=== PATIENT | female | born 1970 | race African-American/Black ===

== ENCOUNTER 2017-05-04 22:44 | Emergency (ER) | payer BC ==
[~2017-05-04] VITALS: Ht 175.3 cm; Wt 86.4 kg
[2017-05-04 22:49] VITALS: TEMP 36.9; Ht 175.3 cm; Wt 86.4 kg
[2017-05-04] MEDS ORDERED: VITACAP26 PO (23:05)
[2017-05-04 23:58] LABS: BASO % 1.3 %; BASO ABS # 0.06 K/uL (0-0.2); COMPLETE YES; EOS % 1.1 %; HEMATOCRIT 39.7 % (37-47); IG% 0.2 %; LYMPH % 38.8 %; LYMPH ABS # 1.73 K/uL (1.2-3.4); MEAN CELL VOLUME 82.2 fL (80-100); MEAN CORPUSCULAR HEMOGLOBIN 28.2 pg (25-34); MEAN CORPUSCULAR HGB CONC 34.3 g/dl (32-36); MEAN PLATELET VOLUME 10.1 fL (7.4-10.4); MONO % 8.3 %; NEUT % 50.3 %; PLATELET COUNT 352 K/uL (130-400); RED BLOOD COUNT 4.83 M/uL (4.2-5.4); WHITE BLOOD COUNT 4.46 K/uL (4.8-10.8)
[2017-05-05 00:16] LABS: ALT/SGPT 20 U/L (12-78); BLOOD UREA NITROGEN 15 mg/dl (7-18); BUN/CREATININE RATIO 13.9 (10-20); CALCIUM 9.7 mg/dl (8.5-10.1); CARBON DIOXIDE 27 mmol/L (21-32); CHLORIDE 104 mmol/L (98-107); GLUCOSE 105 mg/dl (70-99); MAGNESIUM 1.8 mg/dl (1.8-2.4); POTASSIUM 3.6 mmol/L (3.5-5.1); SODIUM 139 mmol/L (136-145)
[2017-05-05 00:27] LABS: ALKALINE PHOSPHATASE 74 U/L (45-117); AST/SGOT 16 U/L (15-37)
[2017-05-05 01:08] LABS: LYME DISEASE AB IGG NEG (NEG); LYME DISEASE AB IGM NEG (NEG)
[2017-05-05 02:42] LABS: URINE APPEARANCE CLEAR (CLEAR); URINE BILIRUBIN NEG (NEG); URINE COLOR YELLOW; URINE NITRITE NEG (NEG); UROBILINOGEN NEG (NEG); ZZUR CULT IF INDIC CLEAN CATCH NO
[2017-05-05 02:45] LABS: MANUAL MICROSCOPIC REQUIRED? NO; REVIEW REQ? NO
--- NOTE | 2017-05-05 03:00 | EMERGENCY ROOM VISIT NOTE ---
History Report prepared by Fredi: Contreras Gan Under the Supervision of: Dr. Talisha Brennan D.O. First contact with patient: 22:59 Chief Complaint: CARDIAC ASSESSMENT Stated Complaint: SVT EPISODE TODAY,WEAK,HEAD PRESSURE,EARACHE,SINUS History of Present Illness The patient is a 46 year old female who presents to the Emergency Room with complaints of intermittent episodes of heart palpitations beginning a few weeks ago. The patient notes that she had an episode of palpitations and near syncope a few weeks ago, for which she was admitted to the hospital. She has had two or three episodes since. She states that she is thought to be having episodes of SVT, though this has not been recorded. The patient was discharged from the hospital on Clarithromycin. She notes that she returned home from a trip shortly before her symptoms initially began. The patient states that she developed a fever after discharge from the hospital. She also complains of a dry cough, sore throat, sinus congestion, and a headache. She states that her episode of palpitations today began about an hour after her congestion and headache began. The patient states that she feels lightheaded, and short of breath with her palpitations. Her symptoms often occur with "bearing down". She notes that her father has a history of heart arrhythmia. The patient denies any new medications. She denies any changes to her bowel movements, or urinary symptoms. During hospital admission, the patient had an US of the carotids, a CT of the head, and a CTA chest which were negative. Her laboratory studies revealed a Hemoglobin of 11 and a Hematocrit of 34, and a magnesium of 1.9. Urinalysis was positive for nitrite and pt was tx for a UTI. The patient also had an echocardiogram which revealed LVEF of 55-60%, normal valves, normal wall motion , and no obvious abnormalities. Source of History: patient Onset: A few weeks ago Quality: other (heart palpitations) Timing: intermittent Modifying Factors (Worsening): other ("bearing down") Associated Symptoms: + headache, + sorethroat, + cough (dry), + SOB, No urinary symptoms Note: Additional symptoms: sinus congestion, lightheadedness. Review of Systems See HPI for pertinent positives & negatives. A total of 10 systems reviewed and were otherwise negative. Past Medical & Surgical Medical Problems: (1) No Known Active Medical Problems (2) Ovarian cyst Family History No pertinent family history stated. Social History Smoking Status: Never Smoker Marital Status: Housing Status: lives with roommate Current/Historical Medications Scheduled Multivitamins/Minerals (Mvi With Minerals), 1 TAB PO DAILY Probiotic Product (Probiotic), 1 CAP PO DAILY Vitamins C & E (Vitamin C), 1 CAP PO DAILY [Progesterone Cream], 1 APPLN TOP PRN UD Allergies Coded Allergies: Meperidine (Verified Allergy, Unknown, unsure, 05/04/17) Physical Exam Vital Signs Date Time Temp Pulse Resp B/P (MAP) Pulse Ox O2 Delivery O2 Flow Rate FiO2 05/05/17 03:36 94 18 139/70 100 05/05/17 03:17 101 05/05/17 01:46 91 18 115/77 97 Room Air 05/04/17 23:34 102 05/04/17 22:49 36.9 120 18 128/76 98 Room Air Physical Exam GENERAL: alert, well appearing, well nourished, no distress, non-toxic EYE EXAM: normal conjunctiva, PERRL and EOM's grossly intact OROPHARYNX: no exudate, no erythema, lips, buccal mucosa, and tongue normal and mucous membranes are moist NECK: supple, no nuchal rigidity, no adenopathy, non-tender LUNGS: Clear to auscultation. Normal chest wall mechanics HEART: no murmurs, S1 normal and S2 normal ABDOMEN: abdomen soft, non-tender, normo-active bowel sounds, no masses, no rebound or guarding. BACK: Back is symmetrical on inspection and there is no deformity, no midline tenderness, no CVA tenderness. SKIN: no rashes and no bruising UPPER EXTREMITIES: upper extremities are grossly normal. LOWER EXTREMITIES: No pitting edema. NEURO EXAM: Normal sensorium, cranial nerves II-XII grossly intact, normal speech, no gross weakness of arms, no gross weakness of legs. Medical Decision & Procedures ER Provider Diagnostic Interpretation: One View Chest X-ray interpreted by me: no cardiomegaly. No effusion. No wide mediastinum. No focal infiltrate. Laboratory Results 05/04/17 23:45 Red Blood Count 4.83, Mean Corpuscular Volume 82.2, Mean Corpuscular Hemoglobin 28.2, Mean Corpuscular Hemoglobin Concent 34.3, Mean Platelet Volume 10.1, Neutrophils (%) (Auto) 50.3, Lymphocytes (%) (Auto) 38.8, Monocytes (%) (Auto) 8.3, Eosinophils (%) (Auto) 1.1, Basophils (%) (Auto) 1.3, Neutrophils # (Auto) 2.24, Lymphocytes # (Auto) 1.73, Monocytes # (Auto) 0.37, Eosinophils # (Auto) 0.05, Basophils # (Auto) 0.06 05/04/17 23:45 Test 05/04/17 23:45 05/05/17 02:15 White Blood Count 4.46 K/uL (4.8-10.8) Red Blood Count 4.83 M/uL (4.2-5.4) Hemoglobin 13.6 g/dL (12.0-16.0) Hematocrit 39.7 % (37-47) Mean Corpuscular Volume 82.2 fL (80-100) Mean Corpuscular Hemoglobin 28.2 pg (25-34) Mean Corpuscular Hemoglobin Concent 34.3 g/dl (32-36) Platelet Count 352 K/uL (130-400) Mean Platelet Volume 10.1 fL (7.4-10.4) Neutrophils (%) (Auto) 50.3 % Lymphocytes (%) (Auto) 38.8 % Monocytes (%) (Auto) 8.3 % Eosinophils (%) (Auto) 1.1 % Basophils (%) (Auto) 1.3 % Neutrophils # (Auto) 2.24 K/uL (1.4-6.5) Lymphocytes # (Auto) 1.73 K/uL (1.2-3.4) Monocytes # (Auto) 0.37 K/uL (0.11-0.59) Eosinophils # (Auto) 0.05 K/uL (0-0.5) Basophils # (Auto) 0.06 K/uL (0-0.2) RDW Standard Deviation 39.7 fL (36.4-46.3) RDW Coefficient of Variation 13.0 % (11.5-14.5) Immature Granulocyte % (Auto) 0.2 % Immature Granulocyte # (Auto) 0.01 K/uL (0.00-0.02) D-Dimer 290 ug/L FEU (0-500) Anion Gap 8.0 mmol/L (3-11) Est Creatinine Clear Calc Drug Dose 75.8 ml/min Estimated GFR () 70.2 Estimated GFR (Non- 60.6 BUN/Creatinine Ratio 13.9 (10-20) Calcium Level 9.7 mg/dl (8.5-10.1) Magnesium Level 1.8 mg/dl (1.8-2.4) Total Bilirubin 0.3 mg/dl (0.2-1) Aspartate Amino Transf (AST/SGOT) 16 U/L (15-37) Alanine Aminotransferase (ALT/SGPT) 20 U/L (12-78) Alkaline Phosphatase 74 U/L (45-117) Troponin I < 0.015 ng/ml (0-0.045) Total Protein 8.2 gm/dl (6.4-8.2) Albumin 4.1 gm/dl (3.4-5.0) Globulin 4.1 gm/dl (2.5-4.0) Albumin/Globulin Ratio 1.0 (0.9-2) Thyroid Stimulating Hormone (TSH) 1.830 uIu/ml (0.300-4.500) Lyme Disease IgG Antibody NEG (NEG) Lyme Disease IgM Antibody NEG (NEG) Urine Color YELLOW Urine Appearance CLEAR (CLEAR) Urine pH 5.0 (4.5-7.5) Urine Specific [place] 1.020 (1.000-1.030) Urine Protein NEG (NEG) Urine Glucose (UA) NEG (NEG) Urine Ketones TRACE (NEG) Urine Occult Blood NEG (NEG) Urine Nitrite NEG (NEG) Urine Bilirubin NEG (NEG) Urine Urobilinogen NEG (NEG) Urine Leukocyte Esterase NEG (NEG) Laboratory results per my review. ECG Indication: palpitations Rate (beats per minute): 111 Rhythm: sinus tachycardia Findings: no ectopy, other (Normal axis. Normal intervals. ) Comparison ECG Date: no prior available ED Course 2305: The patient was evaluated in room B3B. A complete history and physical exam was performed. 0122: I updated the patient. She will give a urine sample. 0255: I reassessed the patient. She has had no more episodes of palpitations since arriving here. 0320: Upon reevaluation, the patient is feeling better. I discussed the findings and the treatment plan with the patient. She verbalizes agreement and understanding. The patient was discharged home. Medical Decision Differential diagnosis: Etiologies such as premature contractions, electrolyte abnormality, cardiac dysrhythmia, thyroid dysfunction, pulmonary embolism, infection, gastrointestinal, as well as others were entertained. Patient with reassuring labs similar to most recent hospitalization and evaluation she had of which records able to be reviewed at bedside is patient brought them with her. Patient with no evidence of dysrhythmias or concerning changes will be monitored on telemetry for several hours. Patient with no recurrent symptoms while here, orthostatics negative. Discussed with patient follow-up with family doctor as well as cardiology as she would likely need an outpatient Holter monitor. Discussed symptoms to watch and return for, avoidance of caffeine, new medications, dietary changes, strenuous activity, dehydration. Patient verbalized understanding of all this was agreeable with the plan. Doubt occult infectious etiology, doubt related to acute anxiety although discussed stress and anxiety with the patient, no evidence of thyroid storm, ACS , PE, electrolyte abnormality, doubt vascular etiology. Impression Primary Impression: Palpitations Scribe Attestation The scribe's documentation has been prepared under my direction and personally reviewed by me in its entirety. I confirm that the note above accurately reflects all work, treatment, procedures, and medical decision making performed by me. Departure Information Dispostion Home / Self-Care Referrals No Doctor, Assigned (PCP) Patient Instructions My [facility] Additional Instructions Please follow-up with cardiology and discuss warning monitor with them. Please do not start any new medications or dietary changes until you're seen and evaluated. Please stay well-hydrated, avoid caffeine, avoid strenuous activity or heavy lifting until you're otherwise feeling better. Please also discussed follow-up with APPRENTICE regarding possible hormonal changes and perimenopausal symptoms. If you develop any worsening symptoms, pass out, develop chest pain, trouble breathing, or you have any other new concerns, please return the emergency room.
[2017-05-05 03:36] VITALS: BP 139/70; PULSE 94; O2SAT 100
--- NOTE | 2017-05-05 08:22 | DIAGNOSTIC IMAGING REPORT ---
CHEST ONE VIEW PORTABLE HISTORY: palpitations, cough COMPARISON: None. FINDINGS: The lungs are clear. Cardiac silhouette is normal in size. No pleural effusions. No pneumothorax. IMPRESSION: No acute process. Electronically signed by: Feliz Arellano M.D. 05/05/2017 8:21 AM Dictated Date/Time: 05/05/2017 8:20 AM
[2017-05-24] MEDS ORDERED: ASCA500 PO (09:44)
[2017-05-24] MEDS ORDERED: MAGNESIUM 100 MG PO (17:09)
[2017-05-24] MEDS ORDERED: PROGESTERONE CREAM TOP (23:05)
[2017-05-24] MEDS ORDERED: MISCCAP80 PO (23:05)
[2017-05-24] MEDS ORDERED: MULT-513 PO (23:05)
[2017-05-26] MEDS ORDERED: LORA-741 PO (16:42)
== END 2017-05-05 03:36 | disposition home or self-care (01) ==
LOC: C.EDB 22:48
DX: R00.2 Palpitations (principal)

== ENCOUNTER → 2017-05-18 | Outpatient (CLI) | payer BC ==
[~2017-05-18] MED LIST: ASCA500 PO; LORA-741 PO; MAGN200T3 PO; MAGNESIUM 100 MG PO; MISCCAP80 PO; MULT-513 PO; PROGESTERONE CREAM TOP; RANI150T3 PO; VITACAP26 PO
[2017-05-18 10:05] LABS: INSULIN FASTING 19.6 mU/L (3-25)
[2017-05-18 10:06] LABS: T3 TOTAL 0.86 ng/ml (0.60-1.81); THYROXINE (T4) 9.4 mcg/dl (4.5-10.9)
[2017-05-18 10:10] LABS: C-REACTIVE PROTEIN < 0.29 mg/dl (0-0.29); CHOLESTEROL 170 mg/dl (0-200); CHOLESTEROL/HDL RATIO 2.5; HDL CHOLESTEROL 68 mg/dl; LDL CHOLESTEROL CALCULATED 90 mg/dl; TOTAL IRON BINDING CAPACITY 329 mcg/dl (250-450); TRIGLYCERIDES 58 mg/dl (0-150); VERY LOW DENSITY LIPOPROT CALC 12 mg/dl
[2017-05-18 10:16] LABS: ESTIMATED AVERAGE GLUCOSE 105 mg/dl; HA1C FLAG Normal (Normal)
[2017-05-21 17:34] LABS: MICROSOMAL AB 1 IU/ML (<9); T3 REVERSE **TC 90963 24 ng/dL (8-25); TSI <89 % baseline (<140)
--- NOTE | 2017-06-10 11:09 | CODING QUERY MEDICAL NECESSITY ---
SUPPORTING DIAGNOSIS NEEDED Dr. Aguirre, A supporting diagnosis is required for the test/procedure performed on this patient in order for us to be reimbursed by the patient's insurance. Please provide a supporting diagnosis for the following test/procedure listed below next to the test name along with your signature. *If there is no additional diagnosis for this patient that would support the following test/procedure please document that below next to the test/procedure. Test(s)/Procedure(s) that require a supporting diagnosis: * 41545 GLYCATED HEMOGLOBIN DIAGNOSIS: DATE OF SERVICE: 05/18/17 Provider Signature: Date: Thank you Claude Benitez [employer] Information Management Once completed, please kindly fax back to [phone] For questions please call [phone]
== END | disposition home or self-care (01) ==
LOC: C.LAB 08:41
PROVIDERS: ATTEND Internal Medicine
DX: I47.1 Supraventricular tachycardia (principal); R53.83 Other fatigue

== ENCOUNTER 2017-05-22 08:58 | Emergency (ER) | payer BC ==
[~2017-05-22] VITALS: Ht 175.3 cm; Wt 79.9 kg
[~2017-05-22 08:58] MED LIST changes: -ASCA500 PO; -LORA-741 PO; -MAGN200T3 PO; -MAGNESIUM 100 MG PO; -MISCCAP80 PO; -MULT-513 PO; -PROGESTERONE CREAM TOP; -RANI150T3 PO
[2017-05-22 09:14] VITALS: TEMP 36.8; Ht 175.3 cm; Wt 79.9 kg
[2017-05-22] MEDS ORDERED: SODIUM CHLORIDE 0.9% 1000ML 2,000 ML IV STA (09:43)
[2017-05-22 10:09] LABS: BLOOD UREA NITROGEN 6 mg/dl (7-18); BUN/CREATININE RATIO 5.7 (10-20); GLUCOSE 110 mg/dl (70-99); SODIUM 138 mmol/L (136-145)
[2017-05-22 10:10] LABS: CALCIUM 9.6 mg/dl (8.5-10.1); CARBON DIOXIDE 27 mmol/L (21-32); CHLORIDE 106 mmol/L (98-107); MAGNESIUM 2.1 mg/dl (1.8-2.4); POTASSIUM 3.5 mmol/L (3.5-5.1)
[2017-05-22 10:16] LABS: BASO % 1.1 %; BASO ABS # 0.06 K/uL (0-0.2); COMPLETE YES; EOS % 0.5 %; HEMATOCRIT 39.2 % (37-47); LYMPH ABS # 1.26 K/uL (1.2-3.4); MEAN CELL VOLUME 82.9 fL (80-100); MEAN CORPUSCULAR HEMOGLOBIN 27.9 pg (25-34); MEAN CORPUSCULAR HGB CONC 33.7 g/dl (32-36); MEAN PLATELET VOLUME 10.2 fL (7.4-10.4); MONO % 5.6 %; NEUT % 69.8 %; PLATELET COUNT 290 K/uL (130-400); RED BLOOD COUNT 4.73 M/uL (4.2-5.4); WHITE BLOOD COUNT 5.49 K/uL (4.8-10.8)
--- NOTE | 2017-05-22 10:20 | DIAGNOSTIC IMAGING REPORT ---
CHEST ONE VIEW PORTABLE CLINICAL HISTORY: 47 years-old Female presenting with Chest Pain. TECHNIQUE: Portable upright AP view of the chest was obtained. COMPARISON: 05/04/2017. FINDINGS: Cardiomediastinal silhouette normal. Lungs and pleural spaces clear. Osseous structures normal. Upper abdomen normal. IMPRESSION: 1. No acute cardiopulmonary disease. Electronically signed by: Usama Devi M.D. 05/22/2017 10:18 AM Dictated Date/Time: 05/22/2017 10:18 AM
[2017-05-22 13:05] VITALS: BP 130/83; PULSE 93; O2SAT 98
--- NOTE | 2017-05-22 14:18 | EMERGENCY ROOM VISIT NOTE ---
History Report prepared by Fredi: Yolanda Cheema Under the Supervision of: Dr. Tres Mock D.O. First contact with patient: 09:32 Chief Complaint: DIZZY Stated Complaint: ALMOST PASSED OUT, HEART RACING, POSSIBLE SVT EPIS Nursing Triage Summary: triage note: pt reports diarrhea x several days pt reports feeling weak and dizzy - pt reports hx of svt "i don't feel like i am in svt but i feel like my heart is racing maybe because i am dehydrated." pt reports nausea. History of Present Illness The patient is a 47 year old female who presents to the Emergency Room with complaints of constant lightheadedness for the past 3 hours. The patient woke up this morning feeling lightheaded and felt like she was going to pass out. She notes that she also woke up in the middle of the night last night and was feeling lightheaded and her heart was racing. She was able to fall back to sleep. Her symptoms are not worsened with changing positions. She was recently diagnosed with SVT by her powdered metal supervisor. She was diagnosed about 6 weeks ago. The patient states that the SVT has never been caught on a monitor or on an ECG. She has been taking magnesium but no other medications for her SVT. She thought that she might have gone into SVT this morning. The patient states that she felt like her heart was racing. She splashed cold water on her face and that helped to alleviate her symptoms. Pt denies headache, fevers, chest pain, shortness of breath, nausea, vomiting, diarrhea, pain with urination, and melena. She denies any further cardiac history or history of hypertension, diabetes, hyperlipidemia, CAD, smoking or sudden in family at age. She denies calf pain or swelling, recent travel, recent surgery, hemoptysis, and any previous blood clots. She has not had much of an appetite recently. The patient had a complete work-up on April 08 at [facility] in [place]. At that time she had an ultrasound of the carotids, a CT of the head, and a CTA of the chest, which were negative. Her hemoglobin was 11 and her magnesium was 1.9. She had an echo with an EF of 65%, no abnormalities. 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 She denies calf pain or swelling, recent travel, recent surgery, and any previous blood clots. Review of Systems See HPI for pertinent positives & negatives. A total of 10 systems reviewed and were otherwise negative. Past Medical & Surgical Medical Problems: (1) No Known Active Medical Problems (2) Ovarian cyst Family History No pertinent history stated. Social History Smoking Status: Never Smoker Marital Status: Housing Status: lives with roommate Current/Historical Medications Scheduled Ascorbic Acid (Vitamin C), 500 MG PO DAILY Multivitamins/Minerals (Mvi With Minerals), 1 TAB PO DAILY Probiotic Product (Probiotic), 1 CAP PO DAILY [Progesterone Cream], 1 APPLN TOP PRN UD Allergies Coded Allergies: Meperidine (Verified Allergy, Unknown, unsure, 05/22/17) Physical Exam Vital Signs Date Time Temp Pulse Resp B/P (MAP) Pulse Ox O2 Delivery O2 Flow Rate FiO2 05/22/17 13:05 93 16 130/83 98 05/22/17 13:02 93 05/22/17 12:23 92 16 130/83 05/22/17 10:47 110 16 134/87 05/22/17 09:40 101 16 134/84 104 153/96 120 117/90 05/22/17 09:37 112 05/22/17 09:14 36.8 115 18 124/81 98 Room Air Physical Exam GENERAL: alert, well appearing, sitting up in bed, well nourished, no distress, non-toxic EYE EXAM: normal conjunctiva, PERRL and EOM's grossly intact OROPHARYNX: no exudate, no erythema, lips, buccal mucosa, and tongue normal and mucous membranes are moist NECK: supple, no nuchal rigidity, no adenopathy, non-tender LUNGS: Clear to auscultation. Normal chest wall mechanics HEART: Tachycardic, no murmurs, S1 normal and S2 normal ABDOMEN: abdomen soft, non-tender, normo-active bowel sounds, no masses, no rebound or guarding. BACK: Back is symmetrical on inspection and there is no deformity, no midline tenderness, no CVA tenderness. SKIN: no rashes and no bruising UPPER EXTREMITIES: upper extremities are grossly normal. LOWER EXTREMITIES: No pitting edema. Calves are equal bilaterally. NEURO EXAM: Normal sensorium, cranial nerves II-XII intact, normal speech, no weakness of arms, no weakness of legs. No drift. Finger to nose intact. Gross sensation intact. Rapid alternating movements of upper extremities intact. Medical Decision & Procedures ER Provider Diagnostic Interpretation: Radiology results as stated below per my review and the radiologist's interpretation: CHEST ONE VIEW PORTABLE CLINICAL HISTORY: 47 years-old Female presenting with Chest Pain. TECHNIQUE: Portable upright AP view of the chest was obtained. COMPARISON: 05/04/2017. FINDINGS: Cardiomediastinal silhouette normal. Lungs and pleural spaces clear. Osseous structures normal. Upper abdomen normal. IMPRESSION: 1. No acute cardiopulmonary disease. Electronically signed by: Usama Devi M.D. 05/22/2017 10:18 AM Dictated Date/Time: 05/22/2017 10:18 AM Laboratory Results 05/22/17 09:43 Red Blood Count 4.73, Mean Corpuscular Volume 82.9, Mean Corpuscular Hemoglobin 27.9, Mean Corpuscular Hemoglobin Concent 33.7, Mean Platelet Volume 10.2, Neutrophils (%) (Auto) 69.8, Lymphocytes (%) (Auto) 23.0, Monocytes (%) (Auto) 5.6, Eosinophils (%) (Auto) 0.5, Basophils (%) (Auto) 1.1, Neutrophils # (Auto) 3.83, Lymphocytes # (Auto) 1.26, Monocytes # (Auto) 0.31, Eosinophils # (Auto) 0.03, Basophils # (Auto) 0.06 05/22/17 09:30 Test 05/22/17 09:30 05/22/17 09:43 05/22/17 12:15 D-Dimer 350 ug/L FEU (0-500) Anion Gap 5.0 mmol/L (3-11) Est Creatinine Clear Calc Drug Dose 79.6 ml/min Estimated GFR () 78.2 Estimated GFR (Non- 67.5 BUN/Creatinine Ratio 5.7 (10-20) Calcium Level 9.6 mg/dl (8.5-10.1) Magnesium Level 2.1 mg/dl (1.8-2.4) Thyroid Stimulating Hormone (TSH) 1.290 uIu/ml (0.300-4.500) White Blood Count 5.49 K/uL (4.8-10.8) Red Blood Count 4.73 M/uL (4.2-5.4) Hemoglobin 13.2 g/dL (12.0-16.0) Hematocrit 39.2 % (37-47) Mean Corpuscular Volume 82.9 fL (80-100) Mean Corpuscular Hemoglobin 27.9 pg (25-34) Mean Corpuscular Hemoglobin Concent 33.7 g/dl (32-36) Platelet Count 290 K/uL (130-400) Mean Platelet Volume 10.2 fL (7.4-10.4) Neutrophils (%) (Auto) 69.8 % Lymphocytes (%) (Auto) 23.0 % Monocytes (%) (Auto) 5.6 % Eosinophils (%) (Auto) 0.5 % Basophils (%) (Auto) 1.1 % Neutrophils # (Auto) 3.83 K/uL (1.4-6.5) Lymphocytes # (Auto) 1.26 K/uL (1.2-3.4) Monocytes # (Auto) 0.31 K/uL (0.11-0.59) Eosinophils # (Auto) 0.03 K/uL (0-0.5) Basophils # (Auto) 0.06 K/uL (0-0.2) RDW Standard Deviation 40.7 fL (36.4-46.3) RDW Coefficient of Variation 13.4 % (11.5-14.5) Immature Granulocyte % (Auto) 0.0 % Immature Granulocyte # (Auto) 0.00 K/uL (0.00-0.02) Troponin I < 0.015 ng/ml (0-0.045) Laboratory results per my review. Medications Administered Medications (Trade) Dose Ordered Sig/Ladonna Route Start Time Stop Time Status Last Admin Dose Admin Sodium Chloride 2,000 ml @ 999 mls/hr Q2H1M STAT IV 05/22/17 09:43 05/22/17 11:43 DC 05/22/17 10:00 999 MLS/HR ECG Indication: palpitations Rate (beats per minute): 105 Rhythm: sinus tachycardia Findings: other (normal axis, flipped t-waves in the septal and inferior, t- wave flattening in the lateral) Comparison ECG Date: 05/04/17 Change: ECG has improved. ED Course ED COURSE: Vital signs were reviewed and showed tachycardic. The patients medical record was reviewed The above diagnostic studies were performed and reviewed. ED treatments and interventions as stated above. 0932: The patient was evaluated in room A3. A complete history and physical examination was performed. 0943: NSS 2000 ml @ 999 mls/hr IV 1051: I reassessed the patient and she is doing well. I updated her and her . 1306: Upon reevaluation, the patient is feeling better and resting comfortably. I discussed my findings with the patient and her . They understand and agree with the treatment plan. Based on the patients age, coexisting illnesses, exam and lab findings the decision to treat as an outpatient was made. The patient remained stable while under my care. The patient appeared well at the time of discharge. She will follow-up with her PCP this afternoon. Medical Decision Differential diagnoses includes but is not limited to acute coronary syndrome, myocardial infarction, pericarditis, pulmonary embolus, aortic dissection, pneumonia, pneumothorax, musculoskeletal, shingles, esophageal. Patient is a 47 her old female who presents the ER for lightheadedness which has been coming and going associated with heart palpitations. 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 She has been following with her powdered metal supervisor and the presumptive diagnosis was SVT which was never caught on monitor/EKG. Patient presents today which is similar to her presentation in early April. She complains of lightheadedness and feeling that she is going to pass out along with her heart racing. These episodes of her heart racing to sound like episodes of SVT but cannot be certain at this time. He has had extensive workup before. At that time she had an ultrasound of the carotids, a CT of the head, and a CTA of the chest, which were negative. Her hemoglobin was 11 and her magnesium was 1.9. She had an echo with an EF of 65%, no abnormalities. Today labs including CBC was unremarkable without signs of infection or anemia. BMP shows normal electrolytes along with magnesium. TSH was normal. I did not repeat a CT of her head. EKG was improved from her last presentation. Troponins were negative 2. D-dimer was negative. She did have a previous CTA back in March. Her resting heart rate does appear to be elevated as it runs in the ER 80s to 108. Patient is feeling better following 2 L normal saline. I'm uncertain of the true cause of her palpitations at this time but to feel as though they're causing the feeling of lightheadedness. Her neurologic exam is completely intact. I do favor she'll benefit from a Holter monitor and PCP along with cardiology. We set up appointment with her for 3:50 today with a PCP. She will be evaluated at that time and hopefully worked up and possibly transitioned into cardiology and a Holter monitor as they deem fit. Discussed with Pt concerning signs and symptoms to watch out for. Pt was instructed to follow up with their PCP and discussed with the patient their option to return to the ED at anytime for persistent or worsening symptoms. The appropriate anticipatory guidance and out-patient management, including indications for return to the emergency department, were explained at length to the patient and understood. Medication Reconcilliation Current Medication List: was personally reviewed by me Blood Pressure Screening Patient's blood pressure: Normal blood pressure Impression Primary Impression: Heart palpitations Additional Impression: Lightheaded Scribe Attestation The scribe's documentation has been prepared under my direction and personally reviewed by me in its entirety. I confirm that the note above accurately reflects all work, treatment, procedures, and medical decision making performed by me. Departure Information Dispostion Home / Self-Care Referrals No Doctor, Assigned (PCP) Forms HOME CARE DOCUMENTATION FORM, IMPORTANT VISIT INFORMATION Patient Instructions ED Dizziness [facility], ED Palpitations, My [facility] Additional Instructions Please follow up with your primary care doctor physician which is set up for 3: 50 PM today. Any worsening of your symptoms, please return to the ED immediately. This includes any fevers greater than 100.4, passing out, chest pain, shortness breath, persistent nausea, vomiting, unable to eat or drink, or any other concerning signs or symptoms from your standpoint. Problem Qualifiers
[2017-05-24] MEDS ORDERED: ASCA500 PO (09:44)
[2017-05-24] MEDS ORDERED: MAGNESIUM 100 MG PO (17:09)
[2017-05-24] MEDS ORDERED: MULT-513 PO (23:05)
[2017-05-24] MEDS ORDERED: PROGESTERONE CREAM TOP (23:05)
[2017-05-24] MEDS ORDERED: MISCCAP80 PO (23:05)
--- NOTE | 2017-05-26 11:21 | Cardiology Consultation ---
Cardiology Consultation Date of Consultation: May 26, 2017. Requesting Physician: Richa Reason for Consultation: palpitations Pt evaluation today including: conversation w/ patient, physical exam, chart review, lab review, review of studies, conversation w/ attending History of Present Illness The patient is a 47-year-old woman without a known cardiac history who has been experiencing episodes of presyncope. He is apparently started several weeks ago while she was residing in [place]. Initial episode involved a hot painful sensation in the right thigh and which then generalized to include a sense of weakness dizziness and presyncope. This episode prompted an evaluation in a brief hospitalization. She claims to have had several studies performed including CT imaging of her head and an echocardiogram. Patient was discharged return to [place] where she has been suffering additional episodes. Many of these episodes are precipitated by some abdominal or gastrointestinal symptoms such as a cramping or pain in the abdomen. He can also happen after eating. At the onset of the symptoms the patient often times starts to feel warm weak and occasionally develops a sense of dizziness, shortness of breath and chest and neck tightness. Often times she can Pre through the episodes and they will resolve within a few minutes. Other time she needs to sit down and they become more prolonged. Afterwards she is quite weak and drained. While she occasionally has a sense of palpitation this is not a feature of all of her episodes. Interestingly, she has noted similar symptoms of dizziness and lightheadedness when she becomes quite constipated. The patient is an otherwise active individual who was accustomed to routine exercise. She denies problems with exercise although according to the patient feels that she recovers poorly from exertion. He has not describe additional symptoms recently such as fevers or chills. She has had some mild anorexia recently and some abdominal complaints. This appears to have resulted in a 10-15 lb weight loss. 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 Review of Systems Constitutional: + see HPI Respiratory: + see HPI Cardiac: + see HPI Abdomen: + see HPI Female : + see HPI Neurologic: + see HPI Heme: + see HPI Endo: + see HPI Skin: + see HPI All Other Systems: Reviewed and Negative Allergies Coded Allergies: Meperidine (Verified Allergy, Unknown, unsure, 8/23/17) Physical Exam She is alert and oriented x3. Mood affect appear normal. She answered all questions appropriately. HEENT: Sclerae are anicteric. Pupils are equal and reactive to light and accommodation. Extraocular movements were intact. Neuro: Cranial nerves intact Neck: Examination of the submandibular region did not reveal any significant lymphadenopathy. Carotids are palpable bilaterally and free of bruits on auscultation. There was no evidence of jugular venous distention. The thyroid was not enlarged. Lungs: Lungs are clear to auscultation bilaterally. There are no rales wheezes or rhonchi. She has normal respiratory effort without use of accessory muscles. There is normal pulmonary excursion. Cardiac: The rhythm was regular. S1 and S2 were normal. There are no murmurs on examination. The PMI was not markedly displaced on palpation. Abdomen: The abdomen was soft and nontender. Extremities: Patient has bilateral radial pulses that are equal in intensity. There is no evidence cyanosis or clubbing. There was no evidence of significant peripheral edema bilaterally. Skin: There are no rashes noted on examination today. Data Imaging: Chest x-ray was normal EKG: Normal EKG without evidence of pre-excitation, prolonged QT, Brugada pattern or left ventricular hypertrophy Telemetry reviewed: No significant arrhythmia Assessment & Plan 1. Dizziness: Patient has been evaluated in several medical settings over the past few weeks without documentation of any arrhythmia. I do not feel that palpitations or tachycardia are prominent feature of her presentation although she does describe these once in a while. Seems in most of her symptoms start with some gastrointestinal disturbance and then generalized include weakness and presyncope. I suspect this is involves an element of high vagal output. I think her episodes of most likely vagally mediated. While her records from [place] are not available, I suspect her evaluation there was normal. Her examination is normal today. Her EKG is normal. I think this is of low risk situation and additional monitoring is probably reasonable in order to provide any correlation between any arrhythmia and the symptoms described. She was scheduled for Holter monitoring, but event monitoring is probably more appropriate. She has already taken the precaution of increasing hydration. She is aware of the symptoms and does engage in abortive maneuvers when they occur. No actual syncope. I will attempt to obtain her records to confirm the normal nature of her evaluation, and at this point I feel she could be safely discharged with outpatient event monitoring.
[2017-05-26] MEDS ORDERED: LORA-741 PO (16:42)
== END 2017-05-22 13:05 | disposition home or self-care (01) ==
LOC: C.EDB 09:00 → C.EDA 13:05
DX: R00.2 Palpitations (principal); R42 Dizziness and giddiness; I47.1 Supraventricular tachycardia; Z79.899 Other long term (current) drug therapy

== ENCOUNTER 2017-05-24 16:48 | Emergency (ER) | payer BC ==
[~2017-05-24] VITALS: Ht 175.3 cm; Wt 81.7 kg
[~2017-05-24 16:48] MED LIST changes: +ASCA500 PO; -VITACAP26 PO
[2017-05-24 16:53] VITALS: TEMP 36.9; Ht 175.3 cm; Wt 81.7 kg
[2017-05-24] MEDS ORDERED: MAGNESIUM 100 MG PO ×2 (17:09)
[2017-05-24] MEDS ORDERED: SODIUM CHLORIDE 0.9% 1000ML 1,000 ML IV STA (17:40)
[2017-05-24 18:03] LABS: URINE APPEARANCE CLEAR (CLEAR); URINE BILIRUBIN NEG (NEG); URINE COLOR YELLOW; URINE EPITHELIAL CELL AUTO 20-30 /lpf (0-5); URINE NITRITE NEG (NEG); URINE PH 5.5 (4.5-7.5); URINE SPECIFIC GRAVITY 1.013 (1.000-1.030); UROBILINOGEN NEG (NEG); ZZUR CULT IF INDIC CLEAN CATCH NO
[2017-05-24 18:11] LABS: BASO % 1.6 %; BASO ABS # 0.07 K/uL (0-0.2); COMPLETE YES; EOS % 0.7 %; HEMATOCRIT 38.6 % (37-47); IG% 0.2 %; LYMPH % 38.6 %; MEAN CORPUSCULAR HEMOGLOBIN 27.1 pg (25-34); MEAN CORPUSCULAR HGB CONC 32.6 g/dl (32-36); MEAN PLATELET VOLUME 10.3 fL (7.4-10.4); MONO % 8.2 %; NEUT % 50.7 %; PLATELET COUNT 320 K/uL (130-400); RED BLOOD COUNT 4.65 M/uL (4.2-5.4)
[2017-05-24 18:14] LABS: MANUAL MICROSCOPIC REQUIRED? NO; REVIEW REQ? NO
[2017-05-24 18:16] LABS: CHLORIDE 105 mmol/L (98-107); POTASSIUM 3.7 mmol/L (3.5-5.1); SODIUM 140 mmol/L (136-145)
--- NOTE | 2017-05-24 18:16 | EMERGENCY ROOM VISIT NOTE ---
History First contact with patient: 17:23 Chief Complaint: CARDIAC ASSESSMENT Stated Complaint: DEHYDRATION,HEART PALPATATIONS,ALMOST PASSED OUT History of Present Illness The patient is a 47 year old female who presents to the Emergency Room via private vehicle referred from doctor's office with complaints of "dehydration, heart palpitations, almost passed out". The patient states that for the past week she has had diarrhea, and also one episode of heart palpitations and near syncopal episode today around 12:30 PM. This was followed by dry mouth, which she knows she's had for the past 2 days, as well as loss of appetite and nausea. She describes the palpitations episode as a gurgling starting in the upper abdomen that radiates up in through to the mouth region. At that time she notes as though she feels as she is going to pass out and has associated palpitations. She then had the sudden urge to urinate. This past Saturday she was seen here in the emergency Department for the same symptoms, and noted to be dehydrated. She states that when she was seen here in the emergency department 2 days ago, she was doing okay up until yesterday when the symptoms returned. It is important at the 7 weeks ago she had similar symptoms, when she was seen in the emergency department as well and also found to have low magnesium, potassium as well as a urinary tract infection. She was discharged home at that time on antibiotics and felt much better, however her symptoms then began to return. She is here concerned because today the symptoms have returned, and although she was to follow up with cardiology today for Holter monitor placement the symptoms were concerning therefore prompted her visit here. She was referred here by her family doctor. She denies chance of . She denies any abdominal pain at this time. No chest pain, pressure or shortness of breath at this time. The patient had a complete work-up on April 08 at [facility] in [place]. Testing there included: ultrasound of the carotids, a CT of the head, and a CTA of the chest, which were negative. She had an echo with an EF of 65%, no abnormalities. Review of Systems A complete 10-point Review of Systems was discussed with the patient, with pertinent positives and negatives listed in the History of Present Illness. All remaining Review of Systems questions can be considered negative unless otherwise specified. Past Medical/Surgical History Medical Problems: (1) No Known Active Medical Problems (2) Ovarian cyst Social History Smoking Status: Never Smoker Marital Status: Housing Status: lives with roommate Current/Historical Medications Scheduled Ascorbic Acid (Vitamin C), 500 MG PO DAILY Multivitamins/Minerals (Mvi With Minerals), 1 TAB PO DAILY Probiotic Product (Probiotic), 1 CAP PO DAILY [Magnesium 100MG], 200 MG PO DAILY [Progesterone Cream], 1 APPLN TOP PRN UD Physical Exam Vital Signs Date Time Temp Pulse Resp B/P (MAP) Pulse Ox O2 Delivery O2 Flow Rate FiO2 05/24/17 21:10 96 16 124/72 98 05/24/17 19:51 92 18 130/82 100 Room Air 05/24/17 19:45 118 05/24/17 18:27 82 18 123/87 100 Room Air 05/24/17 17:52 Room Air 05/24/17 17:21 84 05/24/17 17:13 Room Air 05/24/17 16:53 36.9 86 18 137/71 97 Room Air Physical Exam VITAL SIGNS - Vital signs and nursing notes were reviewed. Stable. GENERAL -47-year-old female appearing her stated age who is in no acute distress. Communicates well with provider and answers questions appropriately. SKIN - Without rashes. No petechial rashes. HEAD - NC/AT. EYES - PERRL with EOMI bilaterally. Sclera anicteric. Palpebral conjunctiva pink and moist with no injection noted. EARS - No deformities of external structures noted on gross examination bilaterally. NOSE - Midline and without cyanosis. No epistaxis or purulent drainage noted. MOUTH/OROPHARYNX - Without perioral cyanosis. Buccal mucosa pink and moist and without leukoplakia. Tongue midline with equal elevation of palate bilaterally. No tonsillar hypertrophy, erythema, or exudates noted. Fair dentition noted. Airways patent NECK - Neck with FROM. Supple to palpation. No lymphadenopathy noted. No nuchal rigidity. LUNGS - Chest wall symmetric without accessory muscle use, intercostals retractions, or central cyanosis. Normal vesicular breath sounds CTA B/L. No wheezes, rales, or rhonchi appreciated. CARDIAC - RRR with S1/S2. No murmur, rubs, or gallops appreciated. EXTREMITIES - No clubbing or peripheral cyanosis. No pretibial edema present. + 5/5 strength noted in UE/LE bilaterally. NEUROLOGIC - Cranial nerves II through XII grossly intact. Sensory intact to light touch throughout. PSYCH - A&Ox3 and cooperates fully with examiner. Pt is very pleasant and interacts well with examiner. Medical Decision & Procedures Laboratory Results 05/24/17 17:19 Red Blood Count 4.65, Mean Corpuscular Volume 83.0, Mean Corpuscular Hemoglobin 27.1, Mean Corpuscular Hemoglobin Concent 32.6, Mean Platelet Volume 10.3, Neutrophils (%) (Auto) 50.7, Lymphocytes (%) (Auto) 38.6, Monocytes (%) (Auto) 8.2, Eosinophils (%) (Auto) 0.7, Basophils (%) (Auto) 1.6, Neutrophils # (Auto) 2.23, Lymphocytes # (Auto) 1.70, Monocytes # (Auto) 0.36, Eosinophils # (Auto) 0.03, Basophils # (Auto) 0.07 05/24/17 17:19 Test 05/24/17 17:19 05/24/17 19:33 White Blood Count 4.40 K/uL (4.8-10.8) Red Blood Count 4.65 M/uL (4.2-5.4) Hemoglobin 12.6 g/dL (12.0-16.0) Hematocrit 38.6 % (37-47) Mean Corpuscular Volume 83.0 fL (80-100) Mean Corpuscular Hemoglobin 27.1 pg (25-34) Mean Corpuscular Hemoglobin Concent 32.6 g/dl (32-36) Platelet Count 320 K/uL (130-400) Mean Platelet Volume 10.3 fL (7.4-10.4) Neutrophils (%) (Auto) 50.7 % Lymphocytes (%) (Auto) 38.6 % Monocytes (%) (Auto) 8.2 % Eosinophils (%) (Auto) 0.7 % Basophils (%) (Auto) 1.6 % Neutrophils # (Auto) 2.23 K/uL (1.4-6.5) Lymphocytes # (Auto) 1.70 K/uL (1.2-3.4) Monocytes # (Auto) 0.36 K/uL (0.11-0.59) Eosinophils # (Auto) 0.03 K/uL (0-0.5) Basophils # (Auto) 0.07 K/uL (0-0.2) RDW Standard Deviation 40.3 fL (36.4-46.3) RDW Coefficient of Variation 13.3 % (11.5-14.5) Immature Granulocyte % (Auto) 0.2 % Immature Granulocyte # (Auto) 0.01 K/uL (0.00-0.02) Prothrombin Time 10.8 SECONDS (9.0-12.0) Prothromb Time International Ratio 1.0 (0.9-1.1) Activated Partial Thromboplast Time 25.4 SECONDS (21.0-31.0) Partial Thromboplastin Ratio 1.0 Urine Color YELLOW Urine Appearance CLEAR (CLEAR) Urine pH 5.5 (4.5-7.5) Urine Specific [place] 1.013 (1.000-1.030) Urine Protein NEG (NEG) Urine Glucose (UA) NEG (NEG) Urine Ketones NEG (NEG) Urine Occult Blood 2+ (NEG) Urine Nitrite NEG (NEG) Urine Bilirubin NEG (NEG) Urine Urobilinogen NEG (NEG) Urine Leukocyte Esterase NEG (NEG) Urine WBC (Auto) 1-5 /hpf (0-5) Urine RBC (Auto) 0-4 /hpf (0-4) Urine Hyaline Casts (Auto) 0 /lpf (0-5) Urine Epithelial Cells (Auto) 20-30 /lpf (0-5) Urine Bacteria (Auto) NEG (NEG) Urine Test NEG (NEG) Anion Gap 8.0 mmol/L (3-11) Est Creatinine Clear Calc Drug Dose 80.4 ml/min Estimated GFR () 78.2 Estimated GFR (Non- 67.5 BUN/Creatinine Ratio 6.7 (10-20) Calcium Level 9.6 mg/dl (8.5-10.1) Magnesium Level 2.0 mg/dl (1.8-2.4) Total Bilirubin 0.4 mg/dl (0.2-1) Aspartate Amino Transf (AST/SGOT) 16 U/L (15-37) Alanine Aminotransferase (ALT/SGPT) 23 U/L (12-78) Alkaline Phosphatase 67 U/L (45-117) Troponin I < 0.015 ng/ml (0-0.045) Total Protein 8.0 gm/dl (6.4-8.2) Albumin 4.1 gm/dl (3.4-5.0) Globulin 3.9 gm/dl (2.5-4.0) Albumin/Globulin Ratio 1.1 (0.9-2) Lipase 188 U/L (73-393) Thyroid Stimulating Hormone (TSH) 1.140 uIu/ml (0.300-4.500) Lyme Disease IgG Antibody NEG (NEG) Lyme Disease IgM Antibody NEG (NEG) Bedside Troponin I < 0.030 ng/ml (0-0.045) Medications Administered Medications (Trade) Dose Ordered Sig/Ladonna Route Start Time Stop Time Status Last Admin Dose Admin Sodium Chloride 1,000 ml @ 999 mls/hr Q1H1M STAT IV 05/24/17 17:40 05/24/17 18:40 DC 05/24/17 18:22 999 MLS/HR Medical Decision Patient was seen and evaluated as above. Previous visit was extensively reviewed. The patient has been seen here recently in the past for similar symptoms. 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 At this time, I do believe that laboratory workup should begin, and she respect we declined a chest x-ray which at this time I do not believe be beneficial as she just had one a few days ago. On examination there are no emergent findings. She is placed on the monitor, and had 2 episodes of what may be a few PVCs, but still in no SVT. No Atrial fibrillation or V. tach. Troponins were negative 2. Her EKG here initially revealed normal sinus rhythm with sinus arrhythmia, rate of 91 bpm, without ectopy or ischemic change. This was compared to EKG of 05/22/2017 and actually appeared to be improved. The nonspecific T-wave abnormality in the anterior leads has disappeared or become less evident. Later in her stay I decided to repeat another EKG which revealed normal sinus rhythm, rate of 90 bpm, without ectopy or ischemic change. This was compared to one performed earlier in the day and no significant change was found. CBC reveals slight decrease in her white blood cell count 4.4, this was discussed with the patient. There is no anemia. Coags were unremarkable. CMP reveals a creatinine of 1.0, and negative troponins 2. Lipase is negative and TSH is also negative. Urine reveals 2+ blood, the patient is on her menses. Urine test is negative. Lyme testing is also negative. The patient was offered inpatient management, for further evaluation and management of her symptoms, but at this time I do believe she is stable for outpatient management to continue with a Holter monitor. Unfortunately the patient had attempted to become fitted with a Holter monitor today, but was not able to have an appointment. I did talk with her block and case maker trying to establish this for the patient but being the weekend does not appear possible. She felt stable for outpatient management, and notes that she will call her family doctor first thing on Saturday to discuss Holter monitor placement. She certainly is invited back here for any worsening of her symptoms. She was educated upon worrisome symptoms which to return, had questions answered prior to discharge, and was discharged home in good condition. I want to be clear that at this time there is been no emergent process reveal itself during her stay, but I do suspect she is probably experiencing episodes of SVT. The case was extensively discussed with the attending physician. In evaluation and treatment of this patient the following differential diagnoses were entertained: SVT, cardiac arrhythmia, MD, PE, among others. The patient at this time can be PERC rule negative, and had normal d-dimer a few days ago. Impression Primary Impression: Heart palpitations Additional Impression: Lightheaded Departure Information Dispostion Home / Self-Care Condition GOOD Referrals Josh. Guardado M.D. (PCP) Patient Instructions My [facility] Additional Instructions You were seen in the emergency Department for dehydration, or palpitations, and a near syncopal event. At this time as we discussed, I cannot appreciate any emergent or surgical causes to her symptoms at this time. I do believe that following up with her family doctor, for potential monitor is reasonable. Please call the first thing Saturday morning to schedule this. If you develop worsening of your symptoms presently certainly return. Please return to emergency department with any new/symptoms. Problem Qualifiers
[2017-05-24 18:17] LABS: PROTHROMBIN TIME (PATIENT) 10.8 SECONDS (9.0-12.0)
[2017-05-24 18:20] LABS: ALT/SGPT 23 U/L (12-78); AST/SGOT 16 U/L (15-37); BLOOD UREA NITROGEN 7 mg/dl (7-18); BUN/CREATININE RATIO 6.7 (10-20); CALCIUM 9.6 mg/dl (8.5-10.1); CARBON DIOXIDE 27 mmol/L (21-32); GLUCOSE 91 mg/dl (70-99)
[2017-05-24 18:31] LABS: ALB/GLOB RATIO 1.1 (0.9-2); ALKALINE PHOSPHATASE 67 U/L (45-117)
[2017-05-24 18:47] LABS: LYME DISEASE AB IGG NEG (NEG); LYME DISEASE AB IGM NEG (NEG)
[2017-05-24 21:10] VITALS: BP 124/72; PULSE 96; O2SAT 98
[2017-05-24] MEDS ORDERED: PROGESTERONE CREAM TOP ×2 (23:05)
[2017-05-24] MEDS ORDERED: MULT-513 PO ×2 (23:05)
[2017-05-24] MEDS ORDERED: MISCCAP80 PO ×2 (23:05)
== END 2017-05-24 21:11 | disposition home or self-care (01) ==
LOC: C.EDB 16:49 → C.EDC 21:11
DX: R00.2 Palpitations (principal); R42 Dizziness and giddiness; Z87.440 Personal history of urinary (tract) infections; Z79.899 Other long term (current) drug therapy

== ENCOUNTER 2017-05-25 23:09 | Observation (INO) | payer BC ==
[~2017-05-25] VITALS: Ht 175.3 cm; Wt 81.1 kg
[~2017-05-25 23:09] MED LIST changes: +MAGNESIUM 100 MG PO; +MISCCAP80 PO; +MULT-513 PO; +PROGESTERONE CREAM TOP
[2017-05-26 00:05] LABS: MEAN CELL VOLUME 83.5 fL (80-100); MEAN CORPUSCULAR HEMOGLOBIN 26.3 pg (25-34); MEAN CORPUSCULAR HGB CONC 31.5 g/dl (32-36); MEAN PLATELET VOLUME 10.4 fL (7.4-10.4); PLATELET COUNT 326 K/uL (130-400); RED BLOOD COUNT 4.91 M/uL (4.2-5.4); WHITE BLOOD COUNT 4.96 K/uL (4.8-10.8)
[2017-05-26 00:14] LABS: ALT/SGPT 23 U/L (12-78); AST/SGOT 13 U/L (15-37); BLOOD UREA NITROGEN 7 mg/dl (7-18); BUN/CREATININE RATIO 7.8 (10-20); CALCIUM 9.1 mg/dl (8.5-10.1); CARBON DIOXIDE 27 mmol/L (21-32); CHLORIDE 105 mmol/L (98-107); CREATININE 0.95 mg/dl (0.60-1.20); GLUCOSE 97 mg/dl (70-99); POTASSIUM 3.4 mmol/L (3.5-5.1); SODIUM 141 mmol/L (136-145)
[2017-05-26 00:19] LABS: ALB/GLOB RATIO 1.1 (0.9-2); ALKALINE PHOSPHATASE 61 U/L (45-117); CKMB/CK RATIO 0.4 (0-3.0)
[2017-05-26 00:58] LABS: BASO % 0.6 %; BASO ABS # 0.03 K/uL (0-0.2); COMPLETE YES; EOS % 1.6 %; IG% 0.2 %; LYMPH % 54.4 %; MONO % 8.5 %; NEUT % 34.7 %
[2017-05-26] MEDS ORDERED: ACETAMINOPHEN 325 MG TAB PO PRN (01:15)
[2017-05-26] MEDS ORDERED: ONDANSETRON INJ 2 MG/ML 2 ML VIAL IV PRN (01:15)
--- NOTE | 2017-05-26 01:16 | History and Physical ---
History & Physical Date & Time of Service: May 26, 2017 at 01:15 Chief Complaint: Tight Chest, Sob Primary Care Physician: No Doctor, Assigned History of Present Illness Source: patient, clinic records, hospital records Mrs Mccann is a 47 year old female who presents to the ER with palpitations, chest and neck pain. Her symptoms started 7 weeks previously. She has intermittent episodes of feeling flushed, then her heart racing, shortness of breath, then presyncope. She denies any syncope, orthopnea, PND or claudication. Her initial episode was a sensation of warm throbbing in her thigh, shortness of breath, feeling flushed and dizzy. She was able to walk around to the [facility] to get some help. She was hospitalized in [place] with an extensive workup. I do not have those notes but as per previous ER and clinic notes show she had a CT for PE which was normal. Echo was unremarkable. 1 weeks after this she had her second episode. She is now having palpation episodes every 1-2 days. Her symptoms have also become more severe and she notices tightness around her neck, chest pain, then palpitations. She has managed to stop some episodes she thinks by splashing her face with water or bearing down. These episodes are severely effecting her life and she has lost her appetite for the last 2-3 weeks and feels drained for most of the day when she gets them and spends a lot of her time in bed. She has lost about 15 lb in weight. She denies any food getting stuck in her esophagus, no acid taste, no worse on lying down. Other workup here since May 04 includes TSH 1.14, Vit D 28.2, Cortisol AM 13.97, CRP <0.27, Mg 2.3. NÉSTOR, Anti-cardiolipin, anti-thyroid negative. Lyme titres negative. She is due to have a 24 hour collection fo urine for metanephrines and outpatient Holter monitor. She has had repeated visits to the ER in the last month for the same symptoms. Past Medical/Surgical History Medical Problems: (1) Ovarian cyst Status: Resolved Family History Noncontributory Social History Smoking Status: Never Smoker Smokeless Tobacco Use: No Alcohol Use: none Drug Use: none Marital Status: Housing status: lives with significant other Occupational Status: employed Immunizations History of Influenza Vaccine: Unknown History of Tetanus Vaccine?: Unknown History of Pneumococcal: No History of Hepatitis B Vaccine: Unknown Multi-Drug Resistant Organisms History of MDRO: No Allergies Coded Allergies: Meperidine (Verified Allergy, Unknown, unsure, 05/22/17) Home Medications Scheduled Ascorbic Acid (Vitamin C), 500 MG PO DAILY Multivitamins/Minerals (Mvi With Minerals), 1 TAB PO DAILY Probiotic Product (Probiotic), 1 CAP PO DAILY [Magnesium 100MG], 200 MG PO DAILY [Progesterone Cream], 1 APPLN TOP PRN UD Scheduled PRN Lorazepam (Ativan), 0.5 MG PO DAILY PRN for Anxiety/Agitation Review of Systems Constitutional: No fever, No chills Eyes: No worsening of vision ENT: No hearing loss Respiratory: + shortness of breath (see HPI), No cough Cardiovascular: + chest pain, + palpitations, No orthopnea, No PND, No edema, No claudication Abdomen: No pain, No nausea, No vomiting, No diarrhea, No constipation, No GI bleeding Musculoskeletal: No joint pain, No muscle pain Genitourinary - Female: + problem reported (normal menstrual periods, currently on period), No dysuria, No urinary frequency, No urinary urgency, No urinary incontinence, No vaginal bleeding, No vaginal discharge, No vaginal itching Psychiatric: + depression symptoms (reduced appetite and sleeping), No anxiety Endocrine: + fatigue, No excessive thirst, No excessive urination Hematologic / Lymphatic: No abnormal bleeding/bruising Integumentary: No rash, No itch Physical Exam Vital Signs Date Time Temp Pulse Resp B/P (MAP) Pulse Ox O2 Delivery O2 Flow Rate FiO2 05/25/17 23:33 82 05/25/17 23:32 Room Air 98 05/25/17 23:13 36.5 97 24 141/92 99 Room Air General Appearance: WD/WN, no apparent distress Head: normocephalic, atraumatic Eyes: normal inspection, PERRL, EOMI ENT: normal ENT inspection Neck: supple, thyroid normal, no JVD, no carotid bruits, trachea midline Respiratory/Chest: chest non-tender, lungs clear, normal breath sounds, no respiratory distress, no accessory muscle use Cardiovascular: regular rate, rhythm, no murmur, normal peripheral pulses Abdomen/GI: normal bowel sounds, non tender, soft Extremities/Musculoskelatal: no calf tenderness, normal capillary refill, no pedal edema Neurologic/Psych: converter skimmer II-XII nml as tested, no motor/sensory deficits, alert, oriented x 3 Skin: normal color, warm/dry, no rash Diagnostics Laboratory Results Results Past 24 Hours Test 05/25/17 23:30 Range/Units White Blood Count 4.96 4.8-10.8 K/uL Red Blood Count 4.91 4.2-5.4 M/uL Hemoglobin 12.9 12.0-16.0 g/dL Hematocrit 41.0 37-47 % Mean Corpuscular Volume 83.5 80-100 fL Mean Corpuscular Hemoglobin 26.3 25-34 pg Mean Corpuscular Hemoglobin Concent 31.5 32-36 g/dl Platelet Count 326 130-400 K/uL Mean Platelet Volume 10.4 7.4-10.4 fL Neutrophils (%) (Auto) 34.7 % Lymphocytes (%) (Auto) 54.4 % Monocytes (%) (Auto) 8.5 % Eosinophils (%) (Auto) 1.6 % Basophils (%) (Auto) 0.6 % Neutrophils # (Auto) 1.72 1.4-6.5 K/uL Lymphocytes # (Auto) 2.70 1.2-3.4 K/uL Monocytes # (Auto) 0.42 0.11-0.59 K/uL Eosinophils # (Auto) 0.08 0-0.5 K/uL Basophils # (Auto) 0.03 0-0.2 K/uL RDW Standard Deviation 39.6 36.4-46.3 fL RDW Coefficient of Variation 13.2 11.5-14.5 % Immature Granulocyte % (Auto) 0.2 % Immature Granulocyte # (Auto) 0.01 0.00-0.02 K/uL D-Dimer 310 0-500 ug/L FEU Sodium Level 141 136-145 mmol/L Potassium Level 3.4 3.5-5.1 mmol/L Chloride Level 105 98-107 mmol/L Carbon Dioxide Level 27 21-32 mmol/L Anion Gap 9.0 3-11 mmol/L Blood Urea Nitrogen 7 7-18 mg/dl Creatinine 0.95 0.60-1.20 mg/dl Est Creatinine Clear Calc Drug Dose 84.4 ml/min Estimated GFR () 83.3 Estimated GFR (Non- 71.8 BUN/Creatinine Ratio 7.8 10-20 Random Glucose 97 70-99 mg/dl Calcium Level 9.1 8.5-10.1 mg/dl Total Bilirubin 0.5 0.2-1 mg/dl Aspartate Amino Transf (AST/SGOT) 13 15-37 U/L Alanine Aminotransferase (ALT/SGPT) 23 12-78 U/L Alkaline Phosphatase 61 45-117 U/L Total Creatine Kinase 160 26-192 U/L Creatine Kinase MB 0.7 0.5-3.6 ng/ml Creatine Kinase MB Ratio 0.4 0-3.0 Troponin I < 0.015 0-0.045 ng/ml Total Protein 7.7 6.4-8.2 gm/dl Albumin 4.0 3.4-5.0 gm/dl Globulin 3.7 2.5-4.0 gm/dl Albumin/Globulin Ratio 1.1 0.9-2 Diagnostic Radiology CHEST ONE VIEW PORTABLE CLINICAL HISTORY: 47 years-old Female presenting with Chest Pain. TECHNIQUE: Portable upright AP view of the chest was obtained. COMPARISON: 05/04/2017. FINDINGS: Cardiomediastinal silhouette normal. Lungs and pleural spaces clear. Osseous structures normal. Upper abdomen normal. IMPRESSION: 1. No acute cardiopulmonary disease. Electronically signed by: Usama Devi M.D. 05/22/2017 10:18 AM Dictated Date/Time: 05/22/2017 10:18 AM EKG Normal sinus rhythm with sinus arrhythmia, 79 bpm Normal ECG When compared with ECG of 24-MAY-2017 19:25, No significant change was found Impression Assessment and Plan 47 year old female with intermittent palpitations, presyncope and shortness of breath episodes. She has already had an extensive workup in both [place] and here. Palpitations - associated with flushing and presyncope, likely having SVTs - monitor on telemetry - Consult cardiology - Dr Calderon Chest pain rule out UT - low likelihood, normal EKG, occurs during palpitations episodes - repeat troponin in morning - Consult cardiology Malnutrition - Palpitation episodes decreasing her appetite, no concern from GI abnormality from history - consider consult dietary if still here on Saturday VTE Prophylaxis - MELISSA + SCDs - not for chemical prophylaxis as young, mobile Code - Full Disposition - observation status on telemetry to monitor for tachyarrhythmia Attending Addendum: I have physically seen and examined this patient, have supervised the medical residents activities, and agree with the H&P as noted above with the following exceptions as noted. The patient presents to the emergency department with complaint of palpitations , chest and neck pain. The patient denies cough, lower extremity swelling, vision change, hearing change, sore throat, fevers, chills, sweats, weight change, fatigue, nausea, vomiting, diarrhea or constipation, abdominal pain, pelvic pain, blood in urine or stool, dysuria, urinary frequency or urgency, lightheadedness, dizziness, headache, memory loss, rash, abnormal bruising or bleeding, imbalance, focal or generalized weakness, numbness or tingling in arms or legs, generalized arthralgias or myalgias, back or neck pain, night sweats, or allergy symptoms. The review of systems is otherwise negative other than for that already noted above, and at least 10 systems have been reviewed. The patient is awake, well-developed and adequately nourished, alert and oriented 3, normocephalic and atraumatic, lying in bed and in no acute distress. HEENT--PERRL, EOMI, mucous membranes and oropharynx dry. Neck--supple, no JVD or bruits, thyroid normal, trachea midline, no adenopathy. Heart--normal S1 and S2, no extra beats, no murmurs, rubs or gallops. Lungs--clear bilaterally with good air movement, no respiratory distress, no accessory muscle use. Abdomen--normal bowel sounds and soft, nontender and nondistended, no hernias or masses, no organomegaly. Extremities--no cyanosis, clubbing or edema. There are good distal pulses b/l. Dermatologic--normal skin turgor, normal color, warm and dry, no abnormal lymph nodes, no rash. Neurologic--cranial nerves II through XII grossly intact, motor and sensory examination normal. Rheumatologic--normal range of motion, nontender, muscles and joints. Psychiatric--normal affect. Assessment and Plan: 1. Presyncope/palpitations--The patient will be admitted to telemetry for serial cardiac enzymes, cardiac rhythm monitoring and a 2-D echocardiogram with Dopplers. Request records from [place] workup. Consult cardiology. Level of Care Telemetry Advanced Directives Existing Advance Directive: No Existing Living Will: No Existing Power of Manager Bar: No Resuscitation Status FULL RESUSCITATION VTE Prophylaxis VTE Risk Assessment Done? Y/N: Yes Risk Level: Moderate Given or contraindicated: Gunjan Stockings, SCD's, Treatment not indicated Additional Copies To Josh. Guardado M.D. Resident Tracking Resident Involvement: Resident Care Provided Care Provided: Adult Hospital Medicine
[2017-05-26] MEDS ORDERED: IV FLUIDS COMPLETED PRN (01:45)
[2017-05-26 02:30] VITALS: BP 129/78; PULSE 86; TEMP 37.2; O2SAT 92; Ht 175.3 cm; Wt 81.1 kg
[2017-05-26] MEDS: LACTATED RINGER'S 1000ML 1,000 ML IV SCH ×2 (02:55→10:53)
--- NOTE | 2017-05-26 03:23 | EMERGENCY ROOM VISIT NOTE ---
History Report prepared by Fredi: Grecia Sanchez Under the Supervision of: Dr. Beatrice Michelle D.O. First contact with patient: 23:17 Chief Complaint: SHORTNESS OF BREATH Stated Complaint: TIGHT CHEST, SOB History of Present Illness The patient is a 47 year old female who presents to the Emergency Room with complaints of an episode of SOB REGRINDER. The patient has been having episodes of SOB with palpitations and chest tightness for the past 7 weeks. She had never had these episodes before. They have been getting worse and more frequent. She has been seen in the ED for these episodes before. She has had a chest CT and echocardiogram which have been negative. She is scheduled to see cardiology tomorrow for a Holter monitor. Today, she was in bed trying to sleep when the episode started. She started having tightness in her chest and neck which made it hard for her to breathe. She did not have any palpitations today. She tried drinking a magnesium drink which did not help. Currently, she still feels weak. She still has tightness and SOB. She notes that she has been having looser stools recently. She reports urinating more frequently in the morning. She denies any abdominal pain. Her notes that the patient has not been eating well recently. She has lost around 15 lbs in the past month. She states that it is because she does not have an appetite. Today she ate a salad for lunch and a spoonful of rice for dinner. She did not eat breakfast. She drank some coconut water and saltwater. She has not been sleeping well recently. She has had these episodes at night which has contributed to her difficulty sleeping. She has tried taking melatonin to no relief. She denies any history of anxiety or depression in herself or her family. She spent most of today just laying down at home. She is taking time off from school because she is having difficulty studying. The patient does not identify any major life events which might have triggered these episodes. 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 She denies any history of medical problems. Her menstrual periods have been regular. She states that her father had a history of heart problems. Source of History: patient, spouse/significant other Onset: REGRINDER Position: other (global) Quality: other (SOB) Timing: other (episodic) Associated Symptoms: + neck pain, + chest pain, + urinary symptoms ( frequent in the morning), + weakness, No abdominal pain Note: Pt reports decreased appetite, difficulty sleeping. Pt denies palpitations. Review of Systems See HPI for pertinent positives & negatives. A total of 10 systems reviewed and were otherwise negative. Past Medical & Surgical Medical Problems: (1) Chest pain, rule out acute myocardial infarction (2) Failure to thrive in adult (3) No Known Active Medical Problems (4) Ovarian cyst Family History No pertinent family history stated. Social History Smoking Status: Never Smoker Marital Status: Housing Status: lives with significant other Occupation Status: employed Current/Historical Medications Scheduled Ascorbic Acid (Vitamin C), 500 MG PO DAILY Multivitamins/Minerals (Mvi With Minerals), 1 TAB PO DAILY Probiotic Product (Probiotic), 1 CAP PO DAILY [Magnesium 100MG], 200 MG PO DAILY [Progesterone Cream], 1 APPLN TOP PRN UD Allergies Coded Allergies: Meperidine (Verified Allergy, Unknown, unsure, 05/22/17) Physical Exam Vital Signs Date Time Temp Pulse Resp B/P (MAP) Pulse Ox O2 Delivery O2 Flow Rate FiO2 05/25/17 23:33 82 05/25/17 23:32 Room Air 98 05/25/17 23:13 36.5 97 24 141/92 99 Room Air Physical Exam HEENT: Head - normocephalic and atraumatic Pupils are equal, round, and reactive to light. Extraocular eye muscles are intact, and sclera are anicteric. Nose - moist nasal mucosa without discharge. Mouth - moist buccal mucosa. Oropharynx is nonerythematous and there is no tonsillar exudate or edema noted. Neck: Supple; no JVD, nuchal rigidity, cervical lymphadenopathy, or auscultated bruits. Heart: Regular rate and rhythm. There is a normal S1 and S2 with no murmurs, clicks, or gallops appreciated. Lungs: Clear to auscultation bilaterally with no wheezes, rales, or rhonchi. Abdomen: Soft, completely nontender, nondistended, with good bowel sounds. There are no palpable pulsatile masses or hepatosplenomegaly. There is no guarding, rigidity, or rebound noted. Extremities: No evidence of cyanosis, clubbing, or edema. There are easily palpable peripheral pulses. Skin: warm and dry with good turgor and no rashes. Medical Decision & Procedures Laboratory Results 05/25/17 23:30 Red Blood Count 4.91, Mean Corpuscular Volume 83.5, Mean Corpuscular Hemoglobin 26.3, Mean Corpuscular Hemoglobin Concent 31.5, Mean Platelet Volume 10.4, Neutrophils (%) (Auto) 34.7, Lymphocytes (%) (Auto) 54.4, Monocytes (%) (Auto) 8.5, Eosinophils (%) (Auto) 1.6, Basophils (%) (Auto) 0.6, Neutrophils # (Auto) 1.72, Lymphocytes # (Auto) 2.70, Monocytes # (Auto) 0.42, Eosinophils # (Auto) 0.08, Basophils # (Auto) 0.03 Test 05/25/17 23:30 White Blood Count 4.96 K/uL (4.8-10.8) Red Blood Count 4.91 M/uL (4.2-5.4) Hemoglobin 12.9 g/dL (12.0-16.0) Hematocrit 41.0 % (37-47) Mean Corpuscular Volume 83.5 fL (80-100) Mean Corpuscular Hemoglobin 26.3 pg (25-34) Mean Corpuscular Hemoglobin Concent 31.5 g/dl (32-36) Platelet Count 326 K/uL (130-400) Mean Platelet Volume 10.4 fL (7.4-10.4) Neutrophils (%) (Auto) 34.7 % Lymphocytes (%) (Auto) 54.4 % Monocytes (%) (Auto) 8.5 % Eosinophils (%) (Auto) 1.6 % Basophils (%) (Auto) 0.6 % Neutrophils # (Auto) 1.72 K/uL (1.4-6.5) Lymphocytes # (Auto) 2.70 K/uL (1.2-3.4) Monocytes # (Auto) 0.42 K/uL (0.11-0.59) Eosinophils # (Auto) 0.08 K/uL (0-0.5) Basophils # (Auto) 0.03 K/uL (0-0.2) RDW Standard Deviation 39.6 fL (36.4-46.3) RDW Coefficient of Variation 13.2 % (11.5-14.5) Immature Granulocyte % (Auto) 0.2 % Immature Granulocyte # (Auto) 0.01 K/uL (0.00-0.02) D-Dimer 310 ug/L FEU (0-500) Est Creatinine Clear Calc Drug Dose 84.4 ml/min Total Creatine Kinase 160 U/L (26-192) Creatine Kinase MB 0.7 ng/ml (0.5-3.6) Creatine Kinase MB Ratio 0.4 (0-3.0) Laboratory results per my review. ECG Indication: SOB/dyspnea Rate (beats per minute): 79 Rhythm: normal sinus Findings: no acute ischemic change, no ectopy ED Course 2325: The patient was evaluated in room B12B. A complete history and physical examination were performed. Nursing notes and previous electronic medical records were reviewed. IV lock was established and labs were drawn as above. A twelve-lead EKG was obtained. The patient has had a couple chest x-rays here in this emergency department over the past month. I did not feel that was necessary to perform another one. 0001: Review of the patient's chart shows that the patient has lost 5 kg in the past 20 days. 0053: Upon reevaluation, I discussed findings and results with her and her . They verbalized agreement of the treatment plan. The patient will be evaluated for further management and care. 0057: I discussed the patient's case with Dr. Chaudhry, [facility] hospitalist. The patient will be evaluated for further management. Medical Decision The patient is a 47 year old female who presents to the ED with chest tightness. Differential diagnosis includes depression, anxiety, malnutrition, generalized weakness, cardiac dysrhythmia, PE, GERD. Labs: No leukocytosis, stable H&H, D dimer is normal, cardiac enzymes negative, glucose 97, normal renal function, normal LFTs. The patient has been having intermittent episodes of chest tightness, shortness of breath and palpitations. There were no associated palpitations this evening. She stated that she could not catch her breath tonight. The patient has become frustrated with the progressive symptoms and was more concerned tonight because instead of palpitations, she simply had chest discomfort and was unable to catch her breath. The patient has had weight loss in the past month. She appears to be significantly depressed. I'm concerned about the chest tightness that she describes. I discussed the case with the [facility] hospitalist and they will evaluate for further management. Consults Time Called: 005 Consulting Physician: Dr. Chaudhry [facility] hospitalist Returned Call: 56 Discussed the patient's case. The patient will be evaluated for further management. Impression Primary Impression: Chest tightness Additional Impression: Weight loss Scribe Attestation The scribe's documentation has been prepared under my direction and personally reviewed by me in its entirety. I confirm that the note above accurately reflects all work, treatment, procedures, and medical decision making performed by me. Departure Information Dispostion Being Evaluated By Hospitalist Referrals No Doctor, Assigned (PCP) Patient Instructions My [facility] Problem Qualifiers
[2017-05-26 07:37] LABS: ALT/SGPT 20 U/L (12-78); AST/SGOT 9 U/L (15-37); BLOOD UREA NITROGEN 8 mg/dl (7-18); BUN/CREATININE RATIO 9.8 (10-20); CALCIUM 8.7 mg/dl (8.5-10.1); CARBON DIOXIDE 27 mmol/L (21-32); CHLORIDE 108 mmol/L (98-107); CREATININE 0.81 mg/dl (0.60-1.20); GLUCOSE 82 mg/dl (70-99); MAGNESIUM 2.3 mg/dl (1.8-2.4); POTASSIUM 3.6 mmol/L (3.5-5.1); SODIUM 142 mmol/L (136-145)
[2017-05-26 07:43] LABS: ALKALINE PHOSPHATASE 54 U/L (45-117); PHOSPHORUS 3.7 mg/dl (2.5-4.9)
[2017-05-26 08:11] VITALS: BP 120/80; PULSE 83; TEMP 36.8; O2SAT 94
[2017-05-26] MEDS ORDERED: CALCIUM CARBONATE 500 MG CHEWABLE PO PRN (11:30)
[2017-05-26 11:42] VITALS: BP 118/68; PULSE 59; TEMP 36.8; O2SAT 96
--- NOTE | 2017-05-26 12:06 | Discharge Instructions ---
Discharge Instructions Date of Service May 26, 2017. Admission Reason for Admission: Chest Pain,R/O Acute Mi,Failure To Thrive In Adult Discharge Discharge Diagnosis / Problem: Atypical chest pain, r/o ACS Discharge Goals Goal(s): Decrease discomfort, Improve function, Increase independence Activity Recommendations Activity Limitations: resume your previous activity . Instructions / Follow-Up Instructions / Follow-Up Ms. Ramy angela were admitted to [facility] for your chest pain and to rule out possible cardiac causes for the pain. You were also given fluids for suspected dehydration. The test we gave you were all determined to be normal. I understand that you have been coping with these symptoms of flushing and palpitations for sometime now and received a detailed work up in [place] that was also found to be normal. It has been discussed in the outpatient setting for you to wear a heart monitor for an extended period of time to see if it can detect any heart rhythm abnormalities. I would advise you to follow up with your primary care physician at [facility] regarding this. Current Hospital Diet Patient's current hospital diet: Regular Diet Discharge Diet Recommended Diet: Regular Diet Pending Studies Studies pending at discharge: no Laboratory Results Hemoglobin A1c Test 05/18/17 08:55 Range/Units Estimated Average Glucose 105 mg/dl Hemoglobin A1c 5.3 4.5-5.6 % Lipid Panel Test 05/18/17 08:55 Range/Units Triglycerides Level 58 0-150 mg/dl Cholesterol Level 170 0-200 mg/dl HDL Cholesterol 68 mg/dl Cholesterol/HDL Ratio 2.5 LDL Cholesterol, Calculated 90 mg/dl Medical Emergencies . Who to Call and When: Medical Emergencies: If at any time you feel your situation is an emergency, please call 911 immediately. . Non-Emergent Contact Non-Emergency issues call your: Primary Care Provider . . "Provider Documentation" section prepared by Alex Maxwell. . VTE Core Measure Inpt VTE Proph given/why not?: T.ELing. Stockings, SCD's, Treatment not indicated
[2017-05-26 13:21] VITALS: BP_SYST 112; BP_SYST 116; BP_SYST 122; BP_DIAS 73; BP_DIAS 78; BP_DIAS 84; PULSE 101; PULSE 119; PULSE 81; TEMP 37.1; O2SAT 97
--- NOTE | 2017-05-26 16:38 | Discharge Summary ---
Discharge Summary Date of Service May 26, 2017. (Alex Maxwell M.D.) Discharge Summary Admission Date: May 26, 2017 at 01:15 Discharge Disposition: Home Principal Diagnosis: Atypical Chest pain r/o acs (Alex Maxwell M.D.) Medication Reconciliation Continued Medications: Ascorbic Acid (Vitamin C) 500 Mg Tab 500 MG PO DAILY Multivitamins/Minerals (Mvi With Minerals) Tab 1 TAB PO DAILY, TAB Probiotic Product (Probiotic) 1 Cap Cap 1 CAP PO DAILY [Magnesium 100MG] () 200 MG PO DAILY [Progesterone Cream] () 1 APPLN TOP PRN UD Discharge Exam Review of Systems: Constitutional: No fever, No chills, No sweats Respiratory: No cough, No sputum, No wheezing, No shortness of breath Cardiovascular: + palpitations, No chest pain, No orthopnea, No edema Abdomen: + nausea, + diarrhea, No pain, No vomiting, No constipation Physical Exam: General Appearance: WD/WN, no apparent distress Neck: supple, no adenopathy Respiratory/Chest: chest non-tender, lungs clear, normal breath sounds, no respiratory distress, no accessory muscle use Cardiovascular: regular rate, rhythm, no edema, no murmur Abdomen / GI: normal bowel sounds, non tender, soft, no organomegaly Neurologic/Psychiatric: alert, oriented x 3 Skin: normal color, warm/dry, no rash (Alex Maxwell M.D.) Review of Systems: Constitutional: No fever Respiratory: No shortness of breath Cardiovascular: No chest pain Abdomen: No pain Physical Exam: General Appearance: no apparent distress Respiratory/Chest: lungs clear, no respiratory distress Cardiovascular: regular rate, rhythm Abdomen / GI: soft Neurologic/Psychiatric: alert, oriented x 3 Skin: warm/dry (Effie Machado M.D.) Hospital Course Ms. Mccann presented to the ED on 28Aug with chest and neck pain, feeling flushed and SOB. She has actually been having these symptoms over the past 6 weeks and has come to the ED on two occasions over the past week for dehydration. The patient also related that she has had an extensive work-up done in [place] a couple weeks ago in regards to the symptoms, with all normal findings. The patient was ultimately admitted to [facility] for a rule out of ACS. The patient was found to have negative troponin and NSR on EKG. Cardio was consulted and from their perspective she was okay for discharge. They suggest that the patient follow-up in the outpatient setting with Holter monitoring for potential SVT, although they feel a 24 hour Holter as insufficient due to the transient nature of the symptoms. I addition, no arrhythmia was seen over the course the day she was on tele. There does seem to be a vasovagal element to the symptoms and the patient does seem to have some anticipation/apprehension about the episodes that are giving her some additional problems: she is obsessing about the symptoms, it affects her sleep, she can't focus on her work, she has lost her appetite and she spends much of her time by herself, indoors afraid that the symptoms with return. Pt also has a PMHx of endometriosis with laparectomy and IBS like symptoms of intermittent diarrhea and constipation. I discussed with the patient that it addition to accessing for arrhythmia and other medical causes in the outpatient setting, she should also ask her PCP about the resources for the psychosocial dimension, including CBT or SSRI treatment. Pt should be evaluated for depression, anxiety and panic disorder. The more questions I asked about the episode the more it sounded like a panic attack, whether or not underlying medical conditions exist, is yet to be determined. Dr. Machado co-signed a prescription for 3 tablets of Ativan. 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 She states that this is a very stressful time of the year for them. Other workup here since May 04 includes TSH 1.14, Vit D 28.2, Cortisol AM 13.97, CRP <0.27, Mg 2.3. NÉSTOR, Anti-cardiolipin, anti-thyroid negative. Lyme titers negative. She is due to have a 24 hour collection fo urine for metanephrines and outpatient Holter monitor. The constellation of diarrhea, flushing and palpitations puts carcinoid syndrome of the differential. Total Time Spent: Greater than 30 minutes This includes examination of the patient, discharge planning, medication reconciliation, and communication with other providers. (Alex Maxwell M.D.) Resident Physician Supervision Note: I was present with Dr. Maxwell in bedside. I verified the cameron history and physical, reviewed labs and image studies, discussed the case with the resident and agree with the findings and care plan. Total Time Spent: Greater than 30 minutes (35) (Effie Machado M.D.) Discharge Instructions Please refer to the electronic Patient Visit Report (Discharge Instructions) for additional information. (Alex Maxwell M.D.) Additional Copies To Salvador Brown M.D.; Josh. Guardado M.D.
[2017-05-26] MEDS ORDERED: LORA-741 PO ×2 (16:42)
[2017-05-26 16:46] VITALS: BP 116/78; PULSE 77; TEMP 37; O2SAT 98
[2017-05-26 17:02] VITALS: BP 116/78; PULSE 77; TEMP 37; O2SAT 98
--- NOTE | 2017-06-11 14:54 | Medical Consult ---
Consultation Note Date of Service May 26, 2017. Consultation Note Patient Name: CHET PEREIRA Admit Date: 05/22/17 [facility] Rec: [id number] Att Phy: Acct ID: [id number] Maru Phy: No Doctor, Assigned Date: 1970 Fam Phy: No Doctor, Assigned Age: 47 Location: [facility] Sex: F Room/Bed: CC: Felipe Calderon MD No Doctor, Assigned *NOTICE TO RECEIVING DEMOCRAT/AGENCY This information is strictly Confidential and protected under [place] law. [place] law prohibits you from making any further disclosure of this information unless further disclosure is expressly permitted by the written consent of the person to whom it pertains or is authorized by law. A general authorization for the release of medical or other information is not sufficient for this purpose. Hospital accepts no responsibility if the information is made available to any other person, INCLUDING THE PATIENT. Cardiology Consultation Date of Consultation: May 26, 2017. Requesting Physician: Richa Reason for Consultation: palpitations Pt evaluation today including: conversation w/ patient, physical exam, chart review, lab review, review of studies, conversation w/ attending History of Present Illness The patient is a 47-year-old woman without a known cardiac history who has been experiencing episodes of presyncope. He is apparently started several weeks ago while she was residing in [place]. Initial episode involved a hot painful sensation in the right thigh and which then generalized to include a sense of weakness dizziness and presyncope. This episode prompted an evaluation in a brief hospitalization. She claims to have had several studies performed including CT imaging of her head and an echocardiogram. Patient was discharged return to [place] where she has been suffering additional episodes. Many of these episodes are precipitated by some abdominal or gastrointestinal symptoms such as a cramping or pain in the abdomen. He can also happen after eating. At the onset of the symptoms the patient often times starts to feel warm weak and occasionally develops a sense of dizziness, shortness of breath and chest and neck tightness. Often times she can Pre through the episodes and they will resolve within a few minutes. Other time she needs to sit down and they become more prolonged. Afterwards she is quite weak and drained. While she occasionally has a sense of palpitation this is not a feature of all of her episodes. Interestingly, she has noted similar symptoms of dizziness and lightheadedness when she becomes quite constipated. The patient is an otherwise active individual who was accustomed to routine exercise. She denies problems with exercise although according to the patient feels that she recovers poorly from exertion. He has not describe additional symptoms recently such as fevers or chills. She has had some mild anorexia recently and some abdominal complaints. This appears to have resulted in a 10-15 lb weight loss. 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 Review of Systems Constitutional: + see HPI Respiratory: + see HPI Cardiac: + see HPI Abdomen: + see HPI Female : + see HPI Neurologic: + see HPI Heme: + see HPI Endo: + see HPI Skin: + see HPI All Other Systems: Reviewed and Negative Allergies Coded Allergies: Meperidine (Verified Allergy, Unknown, unsure, 05/22/17) Physical Exam She is alert and oriented x3. Mood affect appear normal. She answered all questions appropriately. HEENT: Sclerae are anicteric. Pupils are equal and reactive to light and accommodation. Extraocular movements were intact. Neuro: Cranial nerves intact Neck: Examination of the submandibular region did not reveal any significant lymphadenopathy. Carotids are palpable bilaterally and free of bruits on auscultation. There was no evidence of jugular venous distention. The thyroid was not enlarged. Lungs: Lungs are clear to auscultation bilaterally. There are no rales wheezes or rhonchi. She has normal respiratory effort without use of accessory muscles. There is normal pulmonary excursion. Cardiac: The rhythm was regular. S1 and S2 were normal. There are no murmurs on examination. The PMI was not markedly displaced on palpation. Abdomen: The abdomen was soft and nontender. Extremities: Patient has bilateral radial pulses that are equal in intensity. There is no evidence cyanosis or clubbing. There was no evidence of significant peripheral edema bilaterally. Skin: There are no rashes noted on examination today. Data Imaging: Chest x-ray was normal EKG: Normal EKG without evidence of pre-excitation, prolonged QT, Brugada pattern or left ventricular hypertrophy Telemetry reviewed: No significant arrhythmia Assessment & Plan 1. Dizziness: Patient has been evaluated in several medical settings over the past few weeks without documentation of any arrhythmia. I do not feel that palpitations or tachycardia are prominent feature of her presentation although she does describe these once in a while. Seems in most of her symptoms start with some gastrointestinal disturbance and then generalized include weakness and presyncope. I suspect this is involves an element of high vagal output. I think her episodes of most likely vagally mediated. While her records from [place] are not available, I suspect her evaluation there was normal. Her examination is normal today. Her EKG is normal. I think this is of low risk situation and additional monitoring is probably reasonable in order to provide any correlation between any arrhythmia and the symptoms described. She was scheduled for Holter monitoring, but event monitoring is probably more appropriate. She has already taken the precaution of increasing hydration. She is aware of the symptoms and does engage in abortive maneuvers when they occur. No actual syncope. I will attempt to obtain her records to confirm the normal nature of her evaluation, and at this point I feel she could be safely discharged with outpatient event monitoring. <Electronically signed by Felipe Calderon MD> Signed: 05/26/17 1121 Signed: The status of this report is Signed * If report status is Draft, the document has not been finalized by the responsible provider. MNE: HEMONC <AttendingPhy></AttendingPhy><EDPhy>Tres Mock, </EDPhy> <FamilyPhy>No Doctor, Assigned</FamilyPhy> <PrimaryPhy>No Doctor, Assigned</PrimaryPhy>< UnitNumber>[id number]</UnitNumber><VisitNumber>[id number]</VisitNumber>< PatientName>CHET PEREIRA</PatientName><DateOfBirth>1970</DateOfBirth> <Age>47</Age><Location>[facility]</Location><ServiceDate>05/22/17</ServiceDate><CC> Felipe Calderon MD No Doctor, Assigned</CC><MNE>[facility]</MNE>
== END 2017-05-26 18:14 | disposition home or self-care (01) ==
LOC: C.EDB 23:10 → C.MED 05-26 01:15 → ENRESERV 05-26 01:52
PROVIDERS: ADMIT Hospitalist; ATTEND Family Medicine
DX: R07.89 Other chest pain (principal); R00.2 Palpitations; R63.4 Abnormal weight loss; R55 Syncope and collapse

== ENCOUNTER 2017-05-29 21:43 | Emergency (ER) | payer BC ==
[~2017-05-29] VITALS: Ht 175.3 cm; Wt 80.5 kg
[~2017-05-29 21:43] MED LIST changes: +LORA-741 PO
[2017-05-29 21:47] VITALS: TEMP 36.8; Ht 175.3 cm; Wt 80.5 kg
[2017-05-29] MEDS ORDERED: SODIUM CHLORIDE 0.9% 1000ML 1,000 ML IV STA (22:57)
[2017-05-29 23:46] LABS: BASO ABS # 0.05 K/uL (0-0.2); COMPLETE YES; EOS % 1.8 %; HEMATOCRIT 39.2 % (37-47); LYMPH % 39.7 %; MEAN CELL VOLUME 83.8 fL (80-100); MEAN CORPUSCULAR HEMOGLOBIN 26.1 pg (25-34); MEAN CORPUSCULAR HGB CONC 31.1 g/dl (32-36); MEAN PLATELET VOLUME 10.2 fL (7.4-10.4); MONO % 9.3 %; NEUT % 48.2 %; PLATELET COUNT 315 K/uL (130-400); RED BLOOD COUNT 4.68 M/uL (4.2-5.4); WHITE BLOOD COUNT 5.04 K/uL (4.8-10.8)
--- NOTE | 2017-05-30 00:08 | EMERGENCY ROOM VISIT NOTE ---
History Report prepared by Fredi: Contreras Gan Under the Supervision of: Dr. David Sánchez M.D. First contact with patient: 22:43 Chief Complaint: DEHYDRATION Stated Complaint: ALMOST PASSED OUT, HEART RACING, DEHYDRATED Nursing Triage Summary: Pt reports she almost passed out twice today. Pt thinks she is dehydrated because she cannot produce saliva. Pt denies n/v/d "This keeps happening to me" History of Present Illness The patient is a 47 year old female who presents to the Emergency Room with complaints of persistent dehydration beginning about a month ago. Her symptoms include dry mouth, episodes of lightheadedness, headaches, chest "tightness", intermittent heart palpitations, SOB, generalized weakness, and diarrhea. She has been admitted to the hospital for her symptoms multiple times in the past month. The patient was most recently admitted to the hospital two days ago. She states that she has not been eating much recently due to lack of appetite. She states that she has been drinking a lot of water, and urinating frequently. The patient states that she had two episodes of near-syncope today while walking around. She was supposed to get a Holter Monitor today, but did not. She denies any recent tick bites. The patient denies any fevers. She denies any chance of . Source of History: patient Onset: About a month ago Quality: other (dehydration) Timing: other (persistent) Associated Symptoms: + headache, + chest pain ("tightness"), + SOB, + diarrhea, + weakness (generalized), No fevers Note: Additional symptoms: heart palpitations, dry mouth, and episodes of lightheadedness. Review of Systems See HPI for pertinent positives & negatives. A total of 10 systems reviewed and were otherwise negative. Past Medical & Surgical Medical Problems: (1) Chest pain, rule out acute myocardial infarction (2) Failure to thrive in adult (3) No Known Active Medical Problems (4) Ovarian cyst Family History No pertinent family history stated. Social History Smoking Status: Never Smoker Drug Use: none Marital Status: Housing Status: lives with significant other Occupation Status: employed Current/Historical Medications Scheduled Ascorbic Acid (Vitamin C), 500 MG PO DAILY Multivitamins/Minerals (Mvi With Minerals), 1 TAB PO DAILY Probiotic Product (Probiotic), 1 CAP PO DAILY [Magnesium 100MG], 200 MG PO DAILY [Progesterone Cream], 1 APPLN TOP PRN UD Scheduled PRN Lorazepam (Ativan), 0.5 MG PO DAILY PRN for Anxiety/Agitation Allergies Coded Allergies: Meperidine (Verified Allergy, Unknown, unsure, 05/30/17) Physical Exam Vital Signs Date Time Temp Pulse Resp B/P (MAP) Pulse Ox O2 Delivery O2 Flow Rate FiO2 05/30/17 00:55 75 16 116/82 99 05/30/17 00:19 77 18 134/90 99 Room Air 05/29/17 23:13 84 16 98 05/29/17 22:43 85 18 100 05/29/17 22:42 109 05/29/17 22:41 121/92 05/29/17 22:35 84 14 114/87 100 Room Air 95 127/86 111 121/92 05/29/17 21:47 36.8 89 18 132/86 97 Room Air Physical Exam GENERAL: Patient is well appearing and in no acute distress. HEENT: No acute trauma, normocephalic atraumatic, mucous membranes moist, no nasal congestion, no scleral icterus. NECK: No stridor, no adenopathy, no meningismus, trachea is midline. LUNGS: No dyspnea. Clear to auscultation and equal bilaterally. No wheeze, no rhonchi. HEART: Regular rate and rhythm. No murmurs, rubs, gallops appreciated. ABDOMEN: Soft, nontender, bowel sounds positive, no masses appreciated, no peritonitis. BACK: No midline tenderness, no CVA tenderness EXTREMITIES: Normal motion all extremities, no cyanosis, no edema. NEUROLOGIC: Alert and oriented, no acute motor or sensory deficits, no focal weakness, cranial nerves grossly intact. SKIN: No rash, no jaundice, no diaphoresis. Medical Decision & Procedures Laboratory Results 05/29/17 23:15 Red Blood Count 4.68, Mean Corpuscular Volume 83.8, Mean Corpuscular Hemoglobin 26.1, Mean Corpuscular Hemoglobin Concent 31.1, Mean Platelet Volume 10.2, Neutrophils (%) (Auto) 48.2, Lymphocytes (%) (Auto) 39.7, Monocytes (%) (Auto) 9.3, Eosinophils (%) (Auto) 1.8, Basophils (%) (Auto) 1.0, Neutrophils # (Auto) 2.43, Lymphocytes # (Auto) 2.00, Monocytes # (Auto) 0.47, Eosinophils # (Auto) 0.09, Basophils # (Auto) 0.05 05/29/17 23:15 Test 05/29/17 23:15 White Blood Count 5.04 K/uL (4.8-10.8) Red Blood Count 4.68 M/uL (4.2-5.4) Hemoglobin 12.2 g/dL (12.0-16.0) Hematocrit 39.2 % (37-47) Mean Corpuscular Volume 83.8 fL (80-100) Mean Corpuscular Hemoglobin 26.1 pg (25-34) Mean Corpuscular Hemoglobin Concent 31.1 g/dl (32-36) Platelet Count 315 K/uL (130-400) Mean Platelet Volume 10.2 fL (7.4-10.4) Neutrophils (%) (Auto) 48.2 % Lymphocytes (%) (Auto) 39.7 % Monocytes (%) (Auto) 9.3 % Eosinophils (%) (Auto) 1.8 % Basophils (%) (Auto) 1.0 % Neutrophils # (Auto) 2.43 K/uL (1.4-6.5) Lymphocytes # (Auto) 2.00 K/uL (1.2-3.4) Monocytes # (Auto) 0.47 K/uL (0.11-0.59) Eosinophils # (Auto) 0.09 K/uL (0-0.5) Basophils # (Auto) 0.05 K/uL (0-0.2) RDW Standard Deviation 40.2 fL (36.4-46.3) RDW Coefficient of Variation 13.3 % (11.5-14.5) Immature Granulocyte % (Auto) 0.0 % Immature Granulocyte # (Auto) 0.00 K/uL (0.00-0.02) Anion Gap 8.0 mmol/L (3-11) Est Creatinine Clear Calc Drug Dose 88.7 ml/min Estimated GFR () 88.9 Estimated GFR (Non- 76.7 BUN/Creatinine Ratio 10.4 (10-20) Calcium Level 9.7 mg/dl (8.5-10.1) Troponin I < 0.015 ng/ml (0-0.045) Laboratory results as reviewed by me. Medications Administered Medications (Trade) Dose Ordered Sig/Ladonna Route Start Time Stop Time Status Last Admin Dose Admin Sodium Chloride 1,000 ml @ 999 mls/hr Q1H1M STAT IV 05/29/17 22:57 05/29/17 23:57 DC 05/29/17 23:25 999 MLS/HR ECG Indication: weakness Rate (beats per minute): 82 Rhythm: normal sinus Findings: no acute ischemic change, no ectopy ED Course 2246: The patient was evaluated in room B8. A complete history and physical exam was performed. 225: Ordered Sodium Chloride 1000 ml @ 999 mls/hr IV. 0025: Reevaluated the patient. Discussed results and discharge instructions: she verbalized understanding and agreement. The patient is ready for discharge. Medical Decision Differential: Sepsis, Infectious (UTI/Pneumonia/Meningitis/etc), Metabolic/ Electrolyte Abnormality, Cardiac, Hepatic, Endocrine, Toxicologic, Neurologic, amongst other pathologies entertained. 47 yr old female with 2 months of progressive generalized weakness, fatigue, lack of appetite, palpitations and near syncopal episodes. Extensive previous work-ups as inpatient, outpatient and ED. CT head, CTA head/chest, Echo, many labs, TSH, Cortisol, Trops, CXRs, EKGs, dimers, Lyme etc all have been normal. She has already had 2 obs evals with no events. Twice scheduled heart monitor but has not gone to these as feeling too weak. She denies issues at home and states she feels safe at home. HR 80s-100s which review of chart is normal for her. Given IV fluids and HR in 70s on re-evaluation. Labs unremarkable, EKG normal/unchanged and vitals OK. She looks well and no acute findings on exam. Stressed need to follow through with holter monitor to rule out cardiac arrythmia as cause. Advised discussing with PCP regarding GI eval, tick borne illnesses, Viral testing (hepatitis and HIV noted), further endocrine testing, possibility this is early menopause, etc. She is aware she can return at any time if worsening or other concerns. Stable at time of discharge with brother and . Medication Reconcilliation Current Medication List: was personally reviewed by me Blood Pressure Screening Patient's blood pressure: Normal blood pressure Blood pressure disposition: Did not require urgent referral Impression Primary Impression: Intermittent palpitations Additional Impression: Generalized weakness Scribe Attestation The scribe's documentation has been prepared under my direction and personally reviewed by me in its entirety. I confirm that the note above accurately reflects all work, treatment, procedures, and medical decision making performed by me. Departure Information Dispostion Home / Self-Care Referrals No Doctor, Assigned (PCP) Patient Instructions [facility] Additional Instructions It is very important that you get your heart monitor so we can make sure that there is no abnormal cardiac activity while you are having these episodes. It is advised you continue following with your primary care provider to discuss further testing and evaluation. You should discuss having further Tick Borne illness testing, viral testing (ie Hepatitis, Luce/EBV, etc). You have been examined and treated today on an emergency basis only. This is not a substitute for, or an effort to provide, complete comprehensive medical care. It is impossible to recognize and treat all injuries or illnesses in a single emergency department visit. It is therefore important that you follow up closely with your Primary Physician. Call as soon as possible for an appointment so you can review all labs, imaging and other testing that you had. Return to Emergency Department, call 911 or seek immediate medical attention if you feel your symptoms are worsening. Problem Qualifiers
[2017-05-30 00:15] LABS: BLOOD UREA NITROGEN 9 mg/dl (7-18); BUN/CREATININE RATIO 10.4 (10-20); CALCIUM 9.7 mg/dl (8.5-10.1); CARBON DIOXIDE 27 mmol/L (21-32); CHLORIDE 106 mmol/L (98-107); GLUCOSE 93 mg/dl (70-99); POTASSIUM 3.6 mmol/L (3.5-5.1); SODIUM 141 mmol/L (136-145)
[2017-05-30 00:55] VITALS: BP 116/82; PULSE 75; O2SAT 99
== END 2017-05-30 00:55 | disposition home or self-care (01) ==
LOC: C.EDB 21:44
DX: R00.2 Palpitations (principal); R53.83 Other fatigue; N83.209 Unspecified ovarian cyst, unspecified side; Z79.899 Other long term (current) drug therapy; Z88.8 Allergy status to other drugs, medicaments and biological substances

== ENCOUNTER 2017-06-28 23:33 | Emergency (ER) | payer BC ==
[~2017-06-28] VITALS: Ht 175.3 cm; Wt 78.7 kg
[~2017-06-28 23:33] MED LIST changes: -LORA-741 PO
[2017-06-28 23:41] VITALS: TEMP 36.7; Ht 175.3 cm; Wt 78.7 kg
--- NOTE | 2017-06-28 23:52 | EMERGENCY ROOM VISIT NOTE ---
History Report prepared by Fredi: Tyrell Fagan Under the Supervision of: Dr. Beatrice Michelle D.O. First contact with patient: 23:43 Chief Complaint: CARDIAC ASSESSMENT Stated Complaint: RACING HEART, WEAKNESS, ALMOST PASSED OUT History of Present Illness The patient is a 47 year old female who presents to the Emergency Room with complaints of constant palpitations beginning 50 minutes ago. The patient states she was getting ready for bed 4 hours ago and felt weak. She reports she went to bed and woke up three hours later to use the restroom. The patient notes she stood up, her legs were extremely weak, and it felt like she was going to pass out. She states she laid back down in bed, and her heart began to race. The patient reports she was admitted to the hospital for similar symptoms a month ago. She notes since then, she has been maintaining her weight, eating, and getting up and moving around. The patient states she has not tried exercising. She reports she did not follow through with the event monitor because she felt better and did not think she needed it. The patient notes she has had incidents like this since her admission, but they were not as severe. She states they did not escalate to the point where she thought she was going to pass out. The patient reports she is currently experiencing dry mouth and a pressure headache. She notes she does not know what comes first, her GI symptoms or her palpitations. The patient states she does not think it is reflux. 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 The patient reports she is still experiencing the chest burning, heart racing, and her pressure headache. She notes she has kept up with her fluids this morning and does not think she is dehydrated. The patient reports she is following up with her PCP for her symptoms. Source of History: patient Onset: 50 minutes ago Position: chest Quality: other (palpitations) Timing: constant Associated Symptoms: + headache (pressure), + weakness (legs) Note: Associated symptoms: thought of passing out, dry mouth, chest burning Review of Systems See HPI for pertinent positives & negatives. A total of 10 systems reviewed and were otherwise negative. Past Medical & Surgical Medical Problems: (1) Chest pain, rule out acute myocardial infarction (2) Failure to thrive in adult (3) No Known Active Medical Problems (4) Ovarian cyst Family History Patient reports no known family medical history. Social History Smoking Status: Never Smoker Drug Use: none Marital Status: Housing Status: lives with significant other Occupation Status: employed Current/Historical Medications Scheduled Ascorbic Acid (Vitamin C), 500 MG PO DAILY Magnesium (Magnesium), 200 MG PO DAILY Multivitamins/Minerals (Mvi With Minerals), 1 TAB PO DAILY Probiotic Product (Probiotic), 1 CAP PO DAILY Ranitidine Hcl (Zantac), 150 MG PO BID [Progesterone Cream], 1 APPLN TOP PRN UD Allergies Coded Allergies: Meperidine (Verified Allergy, Unknown, unsure, 06/29/17) Physical Exam Vital Signs Date Time Temp Pulse Resp B/P (MAP) Pulse Ox O2 Delivery O2 Flow Rate FiO2 06/29/17 02:31 113/82 06/29/17 02:28 80 14 99 06/29/17 02:13 74 19 99 06/29/17 02:01 119/77 06/29/17 01:58 82 16 99 06/29/17 01:44 119/80 06/29/17 01:13 89 18 99 06/29/17 01:08 66 17 100 06/29/17 01:02 06/29/17 01:01 117/87 06/29/17 00:53 72 16 99 06/29/17 00:48 77 15 100 06/29/17 00:33 77 12 100 06/29/17 00:31 132/86 06/29/17 00:18 85 15 100 06/29/17 00:05 88 06/29/17 00:03 85 14 100 Room Air 06/29/17 00:01 150/93 06/28/17 23:51 138/93 06/28/17 23:41 36.7 85 20 130/86 99 Room Air Physical Exam HEENT: Head - normocephalic and atraumatic Pupils are equal, round, and reactive to light. Extraocular eye muscles are intact, and sclera are anicteric. Nose - moist nasal mucosa without discharge. Mouth - moist buccal mucosa. Oropharynx is nonerythematous and there is no tonsillar exudate or edema noted. Neck: Supple; no JVD, nuchal rigidity, cervical lymphadenopathy. Heart: Regular rate and rhythm. There is a normal S1 and S2 with no murmurs, clicks, or gallops appreciated. Lungs: Clear to auscultation bilaterally with no wheezes, rales, or rhonchi. Abdomen: Soft, completely nontender, nondistended, with good bowel sounds. There are no palpable pulsatile masses or hepatosplenomegaly. There is no guarding, rigidity, or rebound noted. Extremities: No evidence of cyanosis, clubbing, or edema. There are easily palpable peripheral pulses. Skin: warm and dry with good turgor and no rashes. Medical Decision & Procedures Laboratory Results 06/29/17 00:20 Red Blood Count 4.78, Mean Corpuscular Volume 82.2, Mean Corpuscular Hemoglobin 27.4, Mean Corpuscular Hemoglobin Concent 33.3, Mean Platelet Volume 10.2, Neutrophils (%) (Auto) 47.2, Lymphocytes (%) (Auto) 40.9, Monocytes (%) (Auto) 8.6, Eosinophils (%) (Auto) 2.1, Basophils (%) (Auto) 1.0, Neutrophils # (Auto) 2.73, Lymphocytes # (Auto) 2.37, Monocytes # (Auto) 0.50, Eosinophils # (Auto) 0.12, Basophils # (Auto) 0.06 06/29/17 00:20 Test 06/29/17 00:20 White Blood Count 5.79 K/uL (4.8-10.8) Red Blood Count 4.78 M/uL (4.2-5.4) Hemoglobin 13.1 g/dL (12.0-16.0) Hematocrit 39.3 % (37-47) Mean Corpuscular Volume 82.2 fL (80-100) Mean Corpuscular Hemoglobin 27.4 pg (25-34) Mean Corpuscular Hemoglobin Concent 33.3 g/dl (32-36) Platelet Count 349 K/uL (130-400) Mean Platelet Volume 10.2 fL (7.4-10.4) Neutrophils (%) (Auto) 47.2 % Lymphocytes (%) (Auto) 40.9 % Monocytes (%) (Auto) 8.6 % Eosinophils (%) (Auto) 2.1 % Basophils (%) (Auto) 1.0 % Neutrophils # (Auto) 2.73 K/uL (1.4-6.5) Lymphocytes # (Auto) 2.37 K/uL (1.2-3.4) Monocytes # (Auto) 0.50 K/uL (0.11-0.59) Eosinophils # (Auto) 0.12 K/uL (0-0.5) Basophils # (Auto) 0.06 K/uL (0-0.2) RDW Standard Deviation 39.8 fL (36.4-46.3) RDW Coefficient of Variation 13.1 % (11.5-14.5) Immature Granulocyte % (Auto) 0.2 % Immature Granulocyte # (Auto) 0.01 K/uL (0.00-0.02) Anion Gap 9.0 mmol/L (3-11) Est Creatinine Clear Calc Drug Dose 80.8 ml/min Estimated GFR () 87.7 Estimated GFR (Non- 75.7 BUN/Creatinine Ratio 13.0 (10-20) Calcium Level 9.6 mg/dl (8.5-10.1) Thyroid Stimulating Hormone (TSH) 2.750 uIu/ml (0.300-4.500) Human Chorionic Gonadotropin, Qual NEG (NEG) Laboratory results per my review. Medications Administered Medications (Trade) Dose Ordered Sig/Ladonna Route Start Time Stop Time Status Last Admin Dose Admin Lidocaine HCl (Viscous Lidocaine 2% Soln) 10 ml NOW STAT PO 06/29/17 00:14 06/29/17 00:18 DC 06/29/17 00:26 10 ML Al Hydroxide/Mg Hydroxide (Maalox Susp) 30 ml NOW STAT PO 06/29/17 00:14 06/29/17 00:18 DC 06/29/17 00:26 30 ML Ranitidine HCl (zANTac TAB) 150 mg NOW STAT PO 06/29/17 02:04 06/29/17 02:05 DC 06/29/17 02:17 150 MG Procedure 0014: Ordered Maalox Susp 30ml PO, Lidocaine HCl 10ml PO 0204: Ordered Zantac Tab 150mg PO, Acetaminophen 1000mg PO PT REFUSED ECG Indication: palpitations Rate (beats per minute): 91 Rhythm: normal sinus Findings: no acute ischemic change, no ectopy ED Course 9444: Past medical records reviewed. The patient was evaluated in room C07. A complete history and physical exam was performed. A twelve-lead EKG was obtained as described above. Laboratory studies were drawn as above. 0014: Ordered Maalox Susp 30ml PO, Lidocaine HCl 10ml PO 0200: Upon reevaluation, the patient has had relief of her burning with the GI cocktail. She describes her headache as being on the surface of the scalp. She states it hurts to rest the side of her head on the pillow. She asked for Tylenol and Zantac before she leaves. I discussed findings and results with her. She verbalized agreement of the treatment plan. The patient will be discharged home when she receives her medication. 0204: Ordered Zantac Tab 150mg PO, Acetaminophen 1000mg PO REFUSED Medical Decision The patient is a 47 year old female who presents to the ED with palpitations. Differential diagnosis includes anxiety, dehydration, GERD. Lab results show: No leukocytosis, stable H&H, normal renal function and glucose level, negative I had seen this patient in the emergency department previously with similar symptoms. She has had an extensive workup in the past. After listening to this patient's history again to include a rushing feeling in her chest with palpitations, discomfort up in her neck, and a burning sensation in her chest and abdomen, I believe that her symptoms may be related to GERD. She does admit to eating a baked sweet potato [facility] I recommended that the patient start taking Zantac twice a day for the next couple weeks to see if this does not improve her symptoms. Again, the patient never followed through with either had monitor testing as suggested by the back feeder plywood layup line. I suggested that she follow through with this testing. As for the patient's headache, it was exacerbated by even light touch to the sides of her head by the pillow. This suggests a tension headache or muscular headache of the head. The patient was encouraged to practice relaxation techniques and to consider the possibility of anxiety that may be exacerbating her symptoms. Laboratory studies were unremarkable. The patient was feeling better prior to discharge. Impression Primary Impression: Palpitations Additional Impressions: GERD (gastroesophageal reflux disease) Headache Scribe Attestation The scribe's documentation has been prepared under my direction and personally reviewed by me in its entirety. I confirm that the note above accurately reflects all work, treatment, procedures, and medical decision making performed by me. Departure Information Dispostion Home / Self-Care Prescriptions Ranitidine Hcl (ZANTAC) 150 Mg Tab 150 MG PO BID, #60 TAB Prov: Beatrice Michelle D.O. 06/29/17 Referrals No Doctor, Assigned (PCP) Forms IMPORTANT VISIT INFORMATION Patient Instructions GERD, GERD Lifestyle Changes, GERD Meds, My SensorCath Additional Instructions Rest with your head elevated. Avoid caffeine, tobacco, alcohol , chocolate, spearmint. Do not eat for 3-4 hours before bed. zantac - 150mg every 12 hours for a month. You must get the event monitor placed. Problem Qualifiers Additional Impressions: GERD (gastroesophageal reflux disease) Esophagitis presence: esophagitis presence not specified Qualified Codes: K21.9 - Gastro-esophageal reflux disease without esophagitis Headache Headache type: tension-type Headache chronicity pattern: acute headache Intractability: not intractable Qualified Codes: G44.209 - Tension-type headache, unspecified, not intractable
[2017-06-29] MEDS ORDERED: ALUMINUM/MAGNESIUM SUSP 30 ML UDC PO STA (00:14)
[2017-06-29] MEDS ORDERED: LIDOCAINE HCL 2% VISC SOLN 20 ML UDC PO STA (00:14)
[2017-06-29] MEDS ORDERED: MAGN200T3 PO (00:22)
[2017-06-29 00:32] LABS: BASO ABS # 0.06 K/uL (0-0.2); COMPLETE YES; EOS % 2.1 %; HEMATOCRIT 39.3 % (37-47); IG% 0.2 %; LYMPH % 40.9 %; LYMPH ABS # 2.37 K/uL (1.2-3.4); MEAN CELL VOLUME 82.2 fL (80-100); MEAN CORPUSCULAR HEMOGLOBIN 27.4 pg (25-34); MEAN CORPUSCULAR HGB CONC 33.3 g/dl (32-36); MEAN PLATELET VOLUME 10.2 fL (7.4-10.4); MONO % 8.6 %; NEUT % 47.2 %; PLATELET COUNT 349 K/uL (130-400); RED BLOOD COUNT 4.78 M/uL (4.2-5.4); WHITE BLOOD COUNT 5.79 K/uL (4.8-10.8)
[2017-06-29 00:57] LABS: CALCIUM 9.6 mg/dl (8.5-10.1); CREATININE 0.91 mg/dl (0.60-1.20); POTASSIUM 3.6 mmol/L (3.5-5.1)
[2017-06-29 01:07] LABS: THYROID STIMULATING HORMONE 2.75 uIu/ml (0.300-4.500)
[2017-06-29 01:12] LABS: PREG INTERNAL NEGATIVE QC NEG CLEAR BACKGROUND; PREG INTERNAL POSITIVE QC POS CONTROL LINE
[2017-06-29] MEDS ORDERED: RANITIDINE HCL 150 MG TAB PO STA (02:04)
[2017-06-29] MEDS ORDERED: ACETAMINOPHEN 500 MG TAB PO STA (02:04)
[2017-06-29 02:28] VITALS: PULSE 80; O2SAT 99
[2017-06-29 02:31] VITALS: BP 113/82
[2017-06-29] MEDS ORDERED: RANI150T3 PO (02:33)
== END 2017-06-29 02:43 | disposition home or self-care (01) ==
LOC: C.EDB 23:34 → C.EDC 06-29 02:43
DX: R00.2 Palpitations (principal); K21.9 Gastro-esophageal reflux disease without esophagitis; G44.209 Tension-type headache, unspecified, not intractable; M62.81 Muscle weakness (generalized); Z79.899 Other long term (current) drug therapy; Z86.79 Personal history of other diseases of the circulatory system; Z87.42 Personal history of other diseases of the female genital tract